=== PATIENT | female | born 1945 | race Caucasian/White ===

== ENCOUNTER 2022-05-20 10:37 | Outpatient (CLI) | payer OTHER, SELFPAY | END 2022-05-20 10:38 | disposition home or self-care (01) | LOC: INJ CL 10:40 | PROVIDERS: PCP Physician Assistant Medical; Visit Provider Family Medicine | DX: M54.16 Radiculopathy, lumbar region (principal); M51.36 Other intervertebral disc degeneration, lumbar region | CPT/HCPCS: 62323; J0702; Q9966 ==

== ENCOUNTER 2022-08-26 10:28 | Outpatient (CLI) | payer OTHER, SELFPAY | END 2022-08-26 10:29 | disposition home or self-care (01) | LOC: INJ CL 10:30 | PROVIDERS: PCP Physician Assistant Medical; Visit Provider Family Medicine | DX: M54.16 Radiculopathy, lumbar region (principal); M51.36 Other intervertebral disc degeneration, lumbar region | CPT/HCPCS: 62323; Q9966 ==

== ENCOUNTER 2022-09-25 09:56 | Emergency (ER) | payer OTHER, SELFPAY ==
[2022-09-25 10:01] VITALS: BP 94/60; PULSE 86; RESP 18; TEMP 36.6; O2SAT 97; BMI 24.0
--- NOTE | 2022-09-25 10:54 | ED.GENADULT ---
HPI - General Adult General Date Seen: 09/25/22 Chief complaint: Neck Injury/Pain Stated complaint: Neck, shoulder RT side spasms Time Seen by Provider: 09/25/22 10:47 Source: patient and family Mode of arrival: ambulatory Limitations: no limitations History of Present Illness HPI narrative: Patient is a 77-year-old woman who presents for evaluation of pain throughout both sides of her neck and shoulders. At 1 point, she was having pain that radiated down the left arm but that is resolved. She has not had any weakness or numbness. She does not recall any trauma at all. She has not had headache or fevers. She cannot turn her head from side to side due to pain and stiffness. It has been painful to get out of bed in out of her chair because of pain moving her neck. She does not recall anything quite this bad although she has had symptoms somewhat like this in the past. She has had problems with her low back and has had injections. She feels like there are knots in her neck and shoulders and by her right shoulder blade. She was worried about possible pneumonia, although she has not had any cough for respiratory symptoms. Her daughter feels that her symptoms are related to muscle spasms. Related Data Home Medications Medication Instructions Recorded Confirmed amiodarone 200 mg tablet 200 mg PO DAILY 09/25/22 09/25/22 aspirin 81 mg chewable tablet 1 tab PO DAILY 09/25/22 09/25/22 clopidogrel 75 mg tablet 75 mg PO DAILY 09/25/22 09/25/22 famotidine 20 mg tablet 20 mg PO DAILY 09/25/22 09/25/22 hydrochlorothiazide 25 mg tablet 25 mg PO DAILY 09/25/22 09/25/22 losartan 25 mg tablet 25 mg PO DAILY 09/25/22 09/25/22 paroxetine HCl 30 mg tablet 30 mg PO DAILY 09/25/22 09/25/22 pitavastatin calcium 2 mg tablet 2 mg PO DAILY 09/25/22 09/25/22 (Livalo) potassium chloride 10 mEq 20 meq PO BID 09/25/22 09/25/22 tablet,extended release potassium chloride 20 mEq oral meq 09/25/22 packet trimethoprim 100 mg tablet 100 mg PO DAILY 09/25/22 09/25/22 Previous Rx's Medication Instructions Recorded diazepam 5 mg tablet (Valium) 5 mg PO QHS PRN #7 tabs 09/25/22 Allergies Allergy/AdvReac Type Severity Reaction Status Date / Time atorvastatin Allergy Verified 09/25/22 10:08 ezetimibe [From Zetia] Allergy Verified 09/25/22 10:08 Penicillins Allergy Verified 09/25/22 10:08 Review of Systems Status of ROS: Reports: 6 or more systems reviewed and unremarkable except as noted in History and below [facility] Medical History Hypertension Surgical History S/P triple vessel bypass Social History Smoking Status: Unknown if ever smoked Do you use any of these nicotine containing products: None How often do you have a drink containing alcohol: 2-4 times a month AUDIT-C Alcohol total score: 2 Non-prescribed substance use: denies use service: No Exam Narrative: Exam Narrative: Vital signs reviewed. In general, an alert, nontoxic elderly woman. She is petite. Head: Normocephalic, atraumatic. Eyes: Pupils equal and reactive. ENT: Nares are clear. No facial trauma. Neck: She has tenderness throughout the cervical musculature bilaterally. Muscle spasm palpable. She has decreased rotation in both directions due to muscle spasm. No meningeal signs. Heart: Regular rate and rhythm. Lungs: Breath sounds are clear and equal bilaterally. No increased work of breathing. Back: She has tenderness some muscle spasm throughout her rhomboids and trapezius muscles bilaterally, as well as around her shoulder blade on the right. Neurologic: She is alert, oriented to person and place. Speech is fluent. Face is symmetric. Strength is 5 of 5 in bilateral upper extremities. Sensation is intact to light touch. Skin: Warm and dry, well perfused. No rash or lesion. Const: Vital Signs, click to edit/add: Vital Signs - 24 hr 09/25/22 10:01 Temperature 97.8 F Pulse Rate [Right Pulse Oximeter] 86 Respiratory Rate 18 Blood Pressure [Ri ght Upper Arm] 94/60 Pulse Oximetry 97 Oxygen Delivery Me thod Room Air Documenting provider has reviewed patient's vital signs: yes Course Course Hospital Course: I do think her symptoms are related to muscle spasm. Discussed that this may have been set off by something like a herniated disc, but if so those symptoms seem to have settled down and she has left now more with diffuse muscle spasm. I do not think this is infectious or vascular in nature. Exam is otherwise benign. I think it is reasonable to continue with ibuprofen and Tylenol although as she is finding, those are unlikely to significantly relieve her discomfort from the symptoms. She has taken Valium in the past for other reasons, and I think using that at bedtime for the next few nights might help with muscle spasm. She does take Benadryl at night for sleep right now, and I have asked her not to combine those 2 medications. I have also recommended massage as something that may help with these symptoms. Primary care follow-up if not improving over the next few days. Return for worsening such as severe controlled pain, fever, weakness, numbness, etcetera. If she does have recurrent radiating pain etcetera, she may have underlying disc pathology that will need to be further evaluated. Vital Signs Vital signs: Initial Vital Signs Temperature 97.8 F 09/25/22 10:01 Temperature Source Temporal Artery Scan 09/25/22 10:01 Pulse Rate 86 09/25/22 10:01 Respiratory Rate 18 09/25/22 10:01 Blood Pressure 94/60 09/25/22 10:01 Blood Pressure Mean 71 09/25/22 10:01 Blood Pressure Position Sitting 09/25/22 10:01 Pulse Oximetry 97 09/25/22 10:01 Oxygen Delivery Method 09/25/22 10:01 Vital Signs Temperature 97.8 F 09/25/22 10:01 Pulse Rate 86 09/25/22 10:01 Respiratory Rate 18 09/25/22 10:01 Blood Pressure 94/60 09/25/22 10:01 Pulse Oximetry 97 09/25/22 10:01 Oxygen Delivery Method 09/25/22 10:01 Temperature 97.8 F 09/25/22 10:01 Pulse Rate 86 09/25/22 10:01 Respiratory Rate 18 09/25/22 10:01 Blood Pressure 94/60 09/25/22 10:01 Pulse Oximetry 97 09/25/22 10:01 Oxygen Delivery Method 09/25/22 10:01 Discharge Plan Discharge Clinical Impression: Torticollis Patient Disposition: Home, Self-Care Condition: Stable Instructions: Muscle Spasm (ED) Additional Instructions: Continue with ibuprofen or Tylenol during the day. Valium as prescribed at night. Massage as recommended. Follow-up with primary care next week for recheck. Return at any time for acute worsening, radiating pain, weakness, numbness, fever, or other changes. Prescriptions: New diazepam [Valium] 5 mg tablet 5 mg PO QHS PRNQty: 7 0RF No Action aspirin 81 mg tablet,chewable 1 tab PO DAILY amiodarone 200 mg tablet 200 mg PO DAILY clopidogrel 75 mg tablet 75 mg PO DAILY hydrochlorothiazide 25 mg tablet 25 mg PO DAILY losartan 25 mg tablet 25 mg PO DAILY paroxetine HCl 30 mg tablet 30 mg PO DAILY Livalo 2 mg tablet 2 mg PO DAILY trimethoprim 100 mg tablet 100 mg PO DAILY famotidine 20 mg tablet 20 mg PO DAILY potassium chloride 10 mEq tablet extended release 20 meq PO BID potassium chloride 20 mEq packet Follow Up/Referrals: Yessi Acosta PA-C [Primary Care Provider] - Stand Alone Forms: [facility] [employer] Info Instructions
== END 2022-09-25 11:11 | disposition home or self-care (01) ==
LOC: ED 10:54
PROVIDERS: Emergency Provider Emergency Medicine; PCP Physician Assistant Medical
DX: M43.6 Torticollis (principal)
CPT/HCPCS: 99283; 99284

== ENCOUNTER 2022-12-06 09:58 | Outpatient (CLI) | payer OTHER, SELFPAY | END 2022-12-06 09:59 | disposition home or self-care (01) | LOC: INJ CL 09:58 | PROVIDERS: PCP Physician Assistant Medical; Visit Provider Family Medicine | DX: M54.16 Radiculopathy, lumbar region (principal); M51.36 Other intervertebral disc degeneration, lumbar region | CPT/HCPCS: 62323; J0702; Q9966 ==

== ENCOUNTER 2023-02-13 08:48 | Outpatient (CLI) | payer OTHER, SELFPAY ==
--- NOTE | 2023-02-13 10:53 | W.ANESCHARGE ---
Anesthesia Charges Start Date/Time Anesthesia Start Date: 02/13/23 Anesthesia Start Time: 10:30 Stop Date/Time Anesthesia Stop Date: 02/13/23 Anesthesia Stop Time: 11:25 Summary Extremes of Age - Over 70 or under 1: MDA
--- NOTE | 2023-02-13 11:25 | W.ANESCHARGE ---
Anesthesia Charges Start Date/Time Anesthesia Start Date: 02/13/23 Anesthesia Start Time: 10:30 Stop Date/Time Anesthesia Stop Date: 02/13/23 Anesthesia Stop Time: 11:25
== END 2023-02-13 08:49 | disposition home or self-care (01) ==
LOC: OP CLINIC 08:49
PROVIDERS: PCP Physician Assistant Medical; Visit Provider Internal Medicine Gastroenterology
DX: Z12.11 Encounter for screening for malignant neoplasm of colon (principal); K31.89 Other diseases of stomach and duodenum; K21.00 Gastro-esophageal reflux disease with esophagitis, without bleeding; K26.9 Duodenal ulcer, unspecified as acute or chronic, without hemorrhage or perforation; R13.10 Dysphagia, unspecified; R10.13 Epigastric pain
CPT/HCPCS: 43239; 45378; 813; 88305; 88312; 99100; J2704

== ENCOUNTER 2023-02-14 11:06 | Outpatient (CLI) | payer OTHER, SELFPAY | END 2023-02-14 11:07 | disposition home or self-care (01) | LOC: INJ CL 11:07 | PROVIDERS: PCP Physician Assistant Medical; Visit Provider Family Medicine | DX: M54.16 Radiculopathy, lumbar region (principal); M51.36 Other intervertebral disc degeneration, lumbar region | CPT/HCPCS: 62323; J0702; Q9966 ==

== ENCOUNTER 2023-04-25 13:01 | Outpatient (CLI) | payer OTHER, SELFPAY | END 2023-04-25 13:02 | disposition home or self-care (01) | LOC: INJ CL 13:02 | PROVIDERS: PCP Physician Assistant Medical; Visit Provider Family Medicine | DX: M54.16 Radiculopathy, lumbar region (principal); M51.36 Other intervertebral disc degeneration, lumbar region | CPT/HCPCS: 62323; J0702; Q9966 ==

== ENCOUNTER 2024-02-06 13:29 | Outpatient (CLI) | payer OTHER, SELFPAY ==
--- OUTSIDE RECORDS SUMMARY | 2024-02-06 13:37 | XMS_ITS | Clinical Summary ---
Author Organization [facility] Address [place], [place] [address] Care Team Providers Care Kindergarten Aide Name Role Phone Zain Mccall MD Unavailable [phone] Yessi Acosta Primary Care Provider Paula Cheung RN Unavailable [phone] Meka Jacobo RN Unavailable Asya Mederos RN Unavailable Otis Johnson MD Unavailable [facility] [place] Unavailable Helio Delgado MD Unavailable Isaac Guo MD Unavailable Jeermy Woodard MD Unavailable Allergies Active Allergy Reactions Criticality Noted Date Comments Amoxicillin Flushing 08/24/2023 Atorvastatin Other - Describe In Comment Field 07/02/2018 Body aches all over On chart review - seems to not have tolerated rosuvastatin or simvastatin either Penicillins Rash 06/04/2019 Ezetimibe Itching 11/02/2021 Medications Medication Sig Dispensed Refills Start Date End Date Status nitroglycerin (NITROSTAT) 0.4 mg sublingual tabletIndications: S/P CABG x [address] 1 tablet under the tongue every 5 minutes if needed for Chest Pain. If no relief after 2nd tablet call 911 5 tablet 06/27/20 20 Active azelastine 137 mcg/actuation (ASTELIN) nasal sprayIndications:D ysfunction of both eustachian tubes,Allergic rhinitis, unspecified seasonality, unspecified trigger Inhale 2 Sprays into affected nostril(s) 2 times daily. 30 mL 11 05/24/20 21 Active carvediloL (COREG) 3.125 mg tablet Take 1 Tablet (3.125 mg) by mouth once daily. 0 12/16/19 23 Active albuterol HFA (PRO-AIR; VENTOLIN; PROVENTIL) 90 mcg/actuation inhalerIndications :SOB (shortness of breath) INHALE 1-2 PUFFS BY MOUTH EVERY 4 HOURS IF NEEDED FOR SHORTNESS OF BREATH. 1 Each 05/12/20 23 Active clopidogreL (PLAVIX) 75 mg tabletIndications: S/P CABG x 3 TAKE 1 TABLET (75 MG) BY MOUTH ONCE DAILY. 90 Tablet 3 10/10/19 24 Active evolocumab (Repatha SureClick) 140 mg/mL subcutaneous pen injectorIndication s:Coronary artery disease, unspecified vessel or lesion type, unspecified whether angina present, unspecified whether [place] or transplanted heart Inject 1 mL (140 mg) subcutaneous every 2 weeks. Inject into abdomen, thigh, or upper arm; rotate injection sites. 6 mL 3 11/20/19 24 Active gabapentin (NEURONTIN) 300 mg capsuleIndications :Lumbar radicular pain TAKE 1 CAPSULE BY MOUTH AT BEDTIME. 30 Capsule 1 12/22/19 24 Active aspirin chewable 81 mg chewable tabletIndications: Abnormal cardiac CT angiography CHEW & SWALLOW 1 TABLET BY MOUTH ONCE DAILY WITH A MEAL. 90 Tablet 3 01/07/20 24 Active traMADoL (ULTRAM) 50 mg tabletIndications: Lumbar radicular pain Take 1 Tablet (50 mg) by mouth 4 times daily if needed for Pain. 36 Tablet 1 01/08/20 24 Active losartan (COZAAR) 25 mg tabletIndications: S/P CABG x 3 Take 1 Tablet (25 mg) by mouth once daily. 90 Tablet 3 01/15/20 24 Active Pitavastatin 2 mg tabIndications:Dys lipidemia,ASHD (arteriosclerotic heart disease) Take by mouth once daily. 90 Tablet 3 01/15/20 24 Active trimethoprim 100 mg tabletIndications: Recurrent UTI Take 1 Tablet (100 mg) by mouth once daily. For prevention of urinary tract infection. 90 Tablet 3 01/15/20 24 Active hydroCHLOROthiazid e 25 mg tabletIndications: S/P CABG (coronary artery bypass graft) Take 1 Tablet (25 mg) by mouth once daily. 90 Tablet 01/15/20 24 Active esomeprazole (NEXIUM) 40 mg capsuleIndications :Gastroesophageal reflux disease with esophagitis, unspecified whether hemorrhage Take 1 Capsule (40 mg) by mouth once daily before a meal. 90 Capsule 01/15/20 24 Active fluticasone (50 mcg per actuation) nasal solution (FLONASE)Indicatio ns:Non-seasonal allergic rhinitis due to pollen Inhale 2 Sprays into affected nostril(s) once daily if needed for Rhinitis. 11.1 mL 01/15/20 24 Active lidocaine 5 % oint topical ointmentIndication s:DDD (degenerative disc disease), lumbar,Osteoarthri tis of knee, unspecified laterality, unspecified osteoarthritis type,Peripheral polyneuropathy Apply topically to affected area(s) 3 times daily if needed (pain, burning). 60 g 01/15/20 24 Active loratadine (CLARITIN) 10 mg tabletIndications: Seasonal allergic rhinitis due to pollen Take 1 Tablet (10 mg) by mouth once daily. 90 Tablet 01/15/20 24 Active PARoxetine (PAXIL) 40 mg tabletIndications: Depression, major, single episode, moderate (HC) Take 1 Tablet (40 mg) by mouth every morning. 90 Tablet 01/15/20 24 Active HYDROcodone-acetam inophen (5-325 mg/tablet)Indicati ons:Spinal stenosis, lumbar region, without neurogenic claudication TAKE 1 TABLET BY MOUTH EVERY 6 HOURS IF NEEDED FOR PAIN. MAX ACETAMINOPHEN DOSE: 4000MG IN 24 HRS. 24 Tablet 01/31/20 24 Active cimetidine (TAGAMET) 300 mg tabletIndications: Chronic GERD Take 1 Tablet (300 mg) by mouth four times daily. 120 Tablet 12/10/19 024 Discontinued(*P atient states no longer taking) fluticasone (50 mcg per actuation) nasal solution (FLONASE)Indicatio ns:Non-seasonal allergic rhinitis due to pollen Inhale 2 Sprays into affected nostril(s) once daily if needed for Rhinitis. 11.1 mL 01/03/20 23 024 Discontinued(Re order (E-cancel not sent)) trimethoprim 100 mg tabletIndications: Recurrent UTI Take 1 Tablet (100 mg) by mouth once daily. For prevention of urinary tract infection. 90 Tablet 3 01/03/20 23 024 Discontinued(Re order (E-cancel not sent)) lidocaine 5 % oint topical ointmentIndication s:DDD (degenerative disc disease), lumbar,Osteoarthri tis of knee, unspecified laterality, unspecified osteoarthritis type,Peripheral polyneuropathy Apply topically to affected area(s) 3 times daily if needed (pain, burning). 60 g 5 01/03/20 23 024 Discontinued(Re order (E-cancel not sent)) Pitavastatin 2 mg tabIndications:Dys lipidemia,ASHD (arteriosclerotic heart disease) Take by mouth once daily. 90 Tablet 3 01/03/20 024 Discontinued(Re order (E-cancel not sent)) esomeprazole (NEXIUM) 40 mg capsuleIndications :Gastroesophageal reflux disease with esophagitis, unspecified whether hemorrhage TAKE 1 CAPSULE (40 MG) BY MOUTH ONCE DAILY BEFORE A MEAL. 90 Capsule 2 05/30/20 024 Discontinued(Re order (E-cancel not sent)) traMADoL (ULTRAM) 50 mg tabletIndications: Lumbar radicular pain TAKE 1 TABLET (50 MG) BY MOUTH 4 TIMES DAILY IF NEEDED FOR PAIN. 36 Tablet 12/22/19 024 Discontinued HYDROcodone-acetam inophen (5-325 mg/tablet)Indicati ons:Spinal stenosis, lumbar region, without neurogenic claudication TAKE 1 TABLET BY MOUTH EVERY 6 HOURS IF NEEDED FOR PAIN. MAX ACETAMINOPHEN DOSE: 4000MG IN 24 HRS. 24 Tablet 01/03/20 24 024 Discontinued hydroCHLOROthiazid e 25 mg tabletIndications: S/P CABG (coronary artery bypass graft) TAKE 1 TABLET (25 MG) BY MOUTH ONCE DAILY. 90 Tablet 01/07/20 24 024 Discontinued(Re order (E-cancel not sent)) losartan (COZAAR) 25 mg tabletIndications: S/P CABG x 3 TAKE 1 TABLET (25 MG) BY MOUTH ONCE DAILY. 90 Tablet 01/07/20 24 024 Discontinued(Re order (E-cancel not sent)) loratadine (CLARITIN) 10 mg tabletIndications: Seasonal allergic rhinitis due to pollen TAKE 1 TABLET (10 MG) BY MOUTH ONCE DAILY. 90 Tablet 01/07/20 24 024 Discontinued(Re order (E-cancel not sent)) PARoxetine (PAXIL) 30 mg tabletIndications: Sweats, menopausal,Depress ion, major, single episode, moderate (HC) TAKE 1 TABLET (30 MG) BY MOUTH EVERY MORNING. 90 Tablet 01/07/20 24 024 Discontinued(Re order (E-cancel not sent)) PARoxetine (PAXIL) 30 mg tabletIndications: Sweats, menopausal,Depress ion, major, single episode, moderate (HC) Take 1 Tablet (30 mg) by mouth every morning. 90 Tablet 3 01/15/20 24 024 Discontinued(*M edication adjustment) HYDROcodone-acetam inophen (5-325 mg/tablet)Indicati ons:Spinal stenosis, lumbar region, without neurogenic claudication TAKE 1 TABLET BY MOUTH EVERY 6 HOURS IF NEEDED FOR PAIN. MAX ACETAMINOPHEN DOSE: 4000MG IN 24 HRS. 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 pylori Atrial fibrillation 12/29/2021 COVID-19 12/03/2021 S/P CABG x 3 06/18/2020 Overview: JULIEN-LAD, SVG-Ramus, SVG-distal RCA Coronary artery disease of n ative artery of [place] heart with stable angina pectoris 05/29/2020 Overview: - coronary angiogram 05/29/2020 - 3 vessel CAD Pain medication agreement 02/15/2016 Overview: Prescriber: Yessi Acosta, PAC, Secondary Dr. Zain Mccall Ok to fill at same amount/dose/frequency in my absence. Controlled substance agreement: 05/25/15 with Yessi Acosta PAC [employer] query on 08/17/17 was acceptable. Last UDS on 10/31/2016 was appropriate. Hyperplastic colon polyp 12/09/2011 Overview: Colonoscopy 12/2011 polyp, no follow up colonoscopy needed Vitamin D deficiency 11/15/2011 Vitamin B12 deficiency 11/15/2011 Seasonal allergies 09/28/2011 Major depression, recurrent 09/28/2011 Spinal stenosis, lumbar [place] on, without neurogenic claudication 03/08/2011 Degeneration of lumbar or lumbosacral interverte bral disc 10/29/2008 Resolved Problems Problem Noted Date Diagnosed Date Resolved Date Pain management contract agreement 10/31/2016 10/24/2017 Yeast infection of the vagina 09/28/2011 05/04/2015 Encounters Date Type Department Care Team Description 01/30/2024 Refill [facility] [address] [place] [address] Zain Mccall MD Refill Request (Hydrocodone-acetaminop hen) 01/18/2024 3:00 PM CDT Office Visit [facility] [address] [place] [address] Zain Mccall MD Back Pain (Lumbar pain-right knee pain) 01/18/2024 Travel 01/16/2024 Refill [facility] [address] [place] [address] Zain Mccall MD Refill Request (Hydrocodone-acetaminop hen) 01/15/2024 1:00 PM CDT Office Visit [facility] [address] [place] [address] Yessi Acosta PA Medicare ANNUAL (subsequent) Visit (78 years old); Knee Pain/problem (R knee pain); Back Pain 01/15/2024 Travel 01/08/2024 Refill [facility] [address] [place] [address] Zain Mccall MD Refill Request (Tramadol) 01/06/2024 Refill [facility] [address] [place] [address] Yessi Acosta PA Refill Request (Hydrochlorothiazide, Losartan, Loratadine, Paroxetine, Aspirin Chewable) 01/03/2024 Refill [facility] [address] [place] [address] Zain Mccall MD Refill Request (Hydrocodone-acetaminop hen) 01/01/2024 Telephone [facility] [address] [place] [address] Zain Mccall MD Questions 12/21/2023 Refill [facility] [address] [place] [address] Zain Mccall MD Refill Request (Gabapentin, Tramadol) 12/20/2023 11:20 AM CDT Office Visit [facility] [address] [place] [address] Zain Mccall MD Musculoskeletal Problem (Follow up right hip pain) 12/20/2023 Travel 12/18/2023 Refill [facility] [address] [place] [address] Zain Mccall MD Refill Request (Hydrocodone-acetaminop hen) 12/05/2023 Refill [facility] [address] [place] [address] Zain Mccall MD Refill Request (Hydrocodone-acetaminop hen) 12/05/2023 Telephone [facility] [address] [place] [address] Zain Mccall MD Medication Management (Hydrocodone ) 11/28/2023 Telephone [facility] [address] [place] [address] Zain Mccall MD Appointment Request 11/25/2023 Refill [facility] [address] [place] [address] Zain Mccall MD Refill Request (Tramadol) 11/20/2023 Refill [facility] [address] [facility] [address] [place] [address] Otis Johnson MD Refill Request (Repatha) 11/20/2023 Refill [facility] [address] [place] [address] Zain Mccall MD Refill Request (Hydrocodone-acetaminop hen) from Last 3 Months Immunizations Name Administration Dates Next Due COVID-19 vaccine (BindHQ NTech 30mcg/0.3mL) 12YO+ ANISH-SUCROSE PF, MDV 01/20/2022,12/29/2021 Influenza Virus, Unspecified 06/27/2011, 06/15/2009,06/15/2009,2007,06/05/2007 Influenza, IIV3 (Age >=3 years) 06/27/20 11,06/15/2009,07/24/2008,2006 Influenza, ccIIV3 (Age >=18 Years) 09/02/2013 Pneumococcal Poly,23-Valent (Pneumovax) 11/09/2011 Pneumococcal conj 13-Valent (Prevnar 13) 10/13/2015 Tdap 11/09/2011,02/16/2005 Zoster (Zostavax-ZVL, live) 09/02/2013 Family History Medical History Relation Name Comments Diabetes Brother 1 Heart Disease Brother 2 70's and 80's Diabetes Father Heart Disease Father age 73 Heart Disease Mother age 93 Premature CHD (under age 60) Neg. none Diabetes Sister Cancer-breast No Family History Cancer-ovarian No Family History Relation Name Status Comments Brother 1 Brother 2 Father Mother Neg. Sister Social History Tobacco Use Types Packs/Day Years Used Date Smoking Tobacco: Never Smokeless Tobacco: Never Tobacco Cessation:Counseling Given: Yes Comments: smokes in the garage Alcohol Use Standard Drinks/Week Comments No 0 (1 standard drink = 0.6 oz pur e alcohol) PHQ-2 Answer Date Recorded PHQ-2 TOTAL SCORE 0 01/15/2024 Social Connections Answer Date Recorded Frequency of Communication with Friends and Fami ly 0 03/22/2023 Financial Resource Strain Answer Date R ecorded Difficulty of Paying Living Expenses 3 03/22/2023 Difficulty of Paying Living Expenses Not on file 03/22/2023 Food Insecurity Answer Date Recorded Worried About Running Out of Food in the Last Ye ar 1 03/22/2023 Transportation Needs Answer Date Record ed Lack of Transportation (Medical) 1 03/22/2023 Housing Stability Answer Date Recorded Unable to Pay for Housing in the Last Year 1 03/22/2023 Sex and Gender Information Value Date Recorded Sex Assigned at Not on file Gender Identity Not on file Sexual Orientation Not on file Obstetrics History Last Filed Vital Signs Vital Sign Reading Time Taken Comments Blood Pressure 108/72 01/18/2024 2:45 PM CDT Pulse 84 01/18/2024 2:45 PM CDT Temperature 36.6 ??C (97.8 ??F) 12/20/2023 11:16 AM C DT Respiratory Rate 16 12/15/2022 11:12 AM CDT Oxygen Saturation 95% 01/18/2024 2:45 PM CDT Inhaled Oxygen Concentration - - Weight 61.2 kg (135 lb) 01/18/2024 2:45 PM CDT Height 157.5 cm (5' 2) 01/15/2024 1:15 PM CDT Body Mass Index 24.69 01/15/2024 1:15 PM CDT Plan of Treatment Upcoming Encounters Date Type Department Care Team (Late st Contact Info) Description 02/06/2024 2:20 PM CDT Office Visit [facility] [address] [place] [address] Zain Mccall MD [address] [place] [address] Arrived 03/20/2024 1:00 PM CDT Office Visit [facility] [address] [place] [address] Zain Mccall MD [address] [place] [address] Health Maintenance Due Date Last Done Comments Zoster (shingles) series for age 50+ (2 of 3) 10/28/2013 09/02/2013 Tetanus booster 11/08/2021 11/09/2011, 02/16/2005 COVID-19 vaccine series ( season) 2023 01/20/2022, 12/29/2021 BMI (ht and wt on same day) for age 18+ 01/14/2025 01/15/2024, 01/02/2023, 09/15/2022, Additional history exists Medicare Wellness for age 65+ 01/15/2025, 01/02/2023, 12/29/2021, Additional history exists Depression screening for age 12+ 01/17/2025 01/18/2024, 01/16/2024, 01/15/2024, Additional history exists Tdap Completed 11/09/2011, 02/16/2005 Pneumococcal series for age 65+ Completed 6, 11/09/2011 DEXA/DXA scan for age 65+ Completed 04/22/2021, Hepatitis C screening for ag e 18-79 Completed 12/29/2021 Procedures Procedure Name Priority Date/Time Associated Diagnosis Comments AMB EPIDURAL STEROID INJECTION Routine 02/06/2024 7:59 AM CDT Spinal stenosis, lumbar region, without neurogenic claudication Lumbar radicular pain DDD (degenerative disc disease), cervical Lumbar facet arthropathy Neuropathic pain of both legs ANTI HCV Add On 12/29/2021 11:11 AM CDT Need for hepatitis C screening test XR DXA BONE DENSITY 2 SITES AXIAL Routine 04/22/2021 2:00 PM CDT Osteopenia, unspecified location from Last 3 Months or Most Recently Relevant to Health Maintenance Results * ANTI HCV (12/29/2021 11:11 AM CDT) HEPATITIS C ANTIBODY Non-React endy Non-React endy 12/29/2021 5:57 PM CDT [facility] Comment:Antibodies to HCV no t detected; does not exclude the possibility of exposure to HCV. Blood BLOOD SPECIMEN / Unknown Venipuncture / Unknown 12/29/2021 11:11 AM CDT 12/29/2021 11:12 AM CDT Yessi MCKAY SEND OUTS [facility] [address] [place] [address], * (ABNORMAL) XR DXA BONE DENSITY 2 SITES AXIAL (04/22/2021 2:00 PM CDT) Anatomical Region Laterality Modality Spine, HIPS, HIPL, HIPR Other Impressions 04/27/2021 2:14 PM CDT Osteopenia. RECOMMENDATIONS: The National Osteoporosis Foundation recommends pharmacologic treatment for patients with T-scores of -2.5 or less, patients with prior history of fragility fractures, or patients with 10-year probability of greater than 3% at hips or greater than 20% of suffering major osteoporotic fractures. Recommend continued optimization of calcium and vitamin D intake through dietary means and/or supplementation and regular exercise. Consider pharmacologic therapy for osteopenia with increased fracture risk. Follow-up bone density reading in 2 years if therapy initiated to assess therapeutic efficacy. Yessi Acosta PA-C [facility] 04/27/2021 Narrative 04/27/2021 2:14 PM CDT For Patients: Results are automatically released to your [facility] (StudyRoom) account once available, in compliance with federal regulations. This means that you may see your results before your provider has had a chance to review them. Please allow 2-3 business days for your provider to comment on the results. XR DXA Bone Mineral Density (BMD) EXAM LOCATION: [address] [address] PATIENT NAME: Cherelle Hussein DATE OF : 1945 EXAM DATE: 04/22/2021 REQUESTING PROVIDER: Yessi Acosta PA GENDER AT : female HEIGHT: 5' 0.63 (04/20/2021) WEIGHT: ??134 lb (04/20/2021) MENOPAUSAL STATUS: Postmenopausal RACE/ETHNICITY: White RISK FACTORS: White Race CURRENT MEDICATION FOR BONE LOSS: NONE INDICATION: Screening for osteoporosis COMPARISON DATE(S): None DXA scans are compared to prior studies for a patient only when the two (or more) studies were performed on the same scanner. It is not possible to compare data generated on one scanner to data from another because there are not standards in DXA equipment. This applies even if the two scanners are made by the same qa tester. PROCEDURE: Dual-energy x-ray absorptiometry performed with routine technique. Reporting is completed in the form of a T-score. The T-score represents the standard deviation from peak bone mass based on young healthy adult. A Z-score is used for diagnosis in premenopausal women, and for men under the age of 50. FINDINGS: RESULT LUMBAR SPINE L1, L2, L4 BMD: 1.021 g/cm2 T-Score: + 0.2 Z-Score: + 2.1 RESULT FEMORAL NECK Right Femoral Neck T-Score: - 1.8 Left Femoral Neck T-Score: - 1.9 ?? Right Femoral Neck Z-Score: + 0.2 Left Femoral Neck Z-Score: + 0.2 RESULT TOTAL HIP Right Hip T-Score: - 1.9 TotalHip T-Score: - 1.9 Right Hip Z-Score: + 0.0 Left Hip Z-Score: + 0.0 WHO criteria: Normal: T-score at or above -1 SD Osteopenia: T-score between -1.1 and -2.4 SD Osteoporosis: T-score at or below -2.5 SD FRAX RISK CALCULATION (USED FOR OSTEOPENIA ONLY): 10-year probability of major osteoporotic fracture: 13.6%. 10-year probability of hip fracture: 3.5%. Yessi MCKAY DEXA from Last 3 Months or Most Recently Relevant to Health Maintenance Advance Directives * Full Code (Latest Code Status on File) Date Activated Date Inactivated Comments 06/18/2020 5:53 AM 06/27/2020 7:33 PM preop Question Answer Comments Code Status Discussion: Other (specify in commen ts): * Full Code Date Activated Date Inactivated Comments 05/29/2020 10:34 AM 05/29/2020 8:20 PM Question Answer Comments Code Status Discussion: Discussed Care Teams Kindergarten Aide Relationship Specialty Start Date End Date Yessi Acosta PA [address] [place] [address] PCP - General Family Practice 06/04/12 Zain Mccall MD [address] [place] [address] Sports Medicine 11/09/11 Paula Cheung RN [address] [facility] [address] [place] [address] [employer] - [place] Registered Nurse 03/19/15 Meka Jacobo RN [address] [address] [place] [employer] - [place] [facility] Registered Nurse 07/05/16 Asya Mederos RN [address] [id number] [employer] - [place] Registered Nurse 06/25/21 Otis Johnson MD [address] [facility] [address] [place] [address] Cardiovascular Disease 12/29/21 [facility] [place] [address] [place] [address] 12/29/21 Helio Delgado MD [address] [place] [address] Surgery - Vascular 01/02/23 Isaac Guo MD [facility] [place] [address] Neurology 01/02/23 [place] [address] [facility] [address] [place] [phone] Physical Medicine and Rehabilitation 01/15/24
--- OUTSIDE RECORDS SUMMARY | 2024-02-06 13:37 | XMS_ITS | Encounter Summary ---
Author Organization [facility] Address [address] [place] [address] Care Team Providers Care Electric Power Line Examiner Name Role Phone Elsewhere, Pcp Primary Care Provider Unavailabl e Reason for Visit * Reason Onset Date Comments Results 01/24/2024 Encounter Details Date Type Department Care Team (Late Contact Info) Description 01/24/2024 Clinical Communication [facility], in [place], [place] [address] [place] [phone] Meghan Rod APRN, C.N.P., M.S.N. [address] [place] [address] Results Social History Tobacco Use Types Packs/Day Years Used Date Smoking Tobacco: Never Smokeless Tobacco: Never PHQ-2 Answer Date Recorded PHQ-2 Score 0 11/23/2020 Depression Answer Date Recor ded PHQ-9 Total Score (max 27) 1 11/23 Nutrition Answer Date Recorded Nutrition: EVOO Fat Source Unknown 10/23 Nutrition: Servings of Fruits/Vegetables per Day Not on file 10/23/2020 Dental Answer Date Recorded Dental: Regular Dentist Unknown 10/23/19 21 Sex and Gender Information Value Date Recorded Sex Assigned at Not on file Gender Identity Not on file Sexual Orientation Not on file documented as of this encounter Plan of Treatment Upcoming Encounters Date Type Department Care Team (Late Contact Info) Description 02/19/2024 1:45 PM CDT Clinical Support Department of Physical Medicine and Rehabilitation in [place], [place] [address] [phone] Jeremy Woodard M.D. [address], [address] [place] [phone] Sobia Orellana P[address] [place] [phone] documented as of this encounter Visit Diagnoses Not on filedocumented in this encounter Additional Health Concerns Assessment Noted Time PHQ-9 Depression Total Score: 1 11/24/19 21 3:00 PM CDT documented as of this encounter Care Teams Electric Power Line Examiner Relationship Specialty Start Date End Date Elsewhere, Pcp PCP - General Family Medicine 07/14/20 documented as of this encounter
--- OUTSIDE RECORDS SUMMARY | 2024-02-06 13:37 | XMS_ITS | Encounter Summary ---
Author Organization [facility] Address [address] [place] [address] Care Team Providers Care Drive Thru Order Taker Name Role Phone Elsewhere, Pcp Primary Care Provider Unavailabl e Reason for Visit * Physical Therapy (Routine) - Authorized Specialty Diagnoses / Procedures Referred By Jodi fraser Referred To Contact Diagnoses Radiculopathy Cervical Procedures PT Ongoing treatment Jeremy Woodard M.D. [address] [place] [address] [facility] Region Referral ID Status Reason Start Date Expiration Date V isits Requested Visits Authorized [id number] Authorized 11/01/2023 10/31/2024 99 99 Encounter Details Date Type Department Care Team (Latest Contact Info) Description 01/04/2024 2:30 PM CDT Clinical Support Department of Physical Medicine and Rehabilitation in [place], [place] [address] [place] [phone] Jeremy Woodard M.D. [address], [facility] [address] [place] [phone] Sobia Orellana P.T. [address] [place] [phone] Radiculopathy Cervical Social History Tobacco Use Types Packs/Day Years [...] on file documented as of this encounter Progress Notes * Sobia Orellana P.T. - 01/04/2024 2:30 PM CDT Physical Therapy Outpatient Treatment Note SUBJECTIVE Patient's Name: Cherelle Hussein Referring Provider: Jeremy Woodard M.D. Visit Diagnosis: 1. Radiculopathy Cervical Payor: [facility] / Plan: [facility] HMO / Product Type: HMO / PT Next Certification Date: 01/10/24 [facility] Visit Count: 11 Patient comments: Patient returns stating severe irritation of her right hip for the last few days.She states pain along the lateral thigh and into the knee. She has had difficulty weight-bearing and ambulating over the past few days. OBJECTIVE Outcome Measures: Patient returns with FOTO functional status score of 65 indicating 27 point change compared to initial survey. Patient has 6 visits over 33 days. Patient is predicted to have 18 points of functional status change in 12 visits over 50 days based on normative data. Left Right Shoulder Flexion 0-170 AROM: 110?? AROM: 115?? Shoulder Abduction 0-140 AROM: 65?? AROM: 90?? Shoulder Internal Rotation 0-70 AROM: T10?? AROM: T12?? Shoulder External Rotation 0-90 AROM: C6?? AROM: T1?? Cervical ROM: Right Left Rotation 15?? 5?? Side bending 5?? 5?? Flexion 35?? Extension 10?? TREATMENT Treatment today consisted of: Manual Therapy: In left side-lying, myofascial/mobilization to distal 1/2 ITB band, gluteus medius,piriformis, quadratus lumborum. In sitting, myofascial/mobilization into gastrocsoleus musculature. Therapeutic exercise: Initiated standing towel roll calf stretch X 15 seconds Home Exercise Program/Education: Use of heating pad to assist with pain management 12/22/2023: Clamshell, pelvic tilts 01/04/2024: Standing towel roll calf stretch Patient reports good HEP compliance. Assessment Clinical Impression: Patient with high levels hypertonicity and tenderness with manual therapy techniques into the calf as well as posterior hip musculature. Patient feels adequate stretch with standing towel roll calf stretch and notes improvement of symptoms with ambulation back to the waiting room. Functional Goals and Timeframes: PT Goal #1: Patient to decreased pain levels with driving to 2/10 with a [address] PT Goal #1 Date: 12/13/23 PT Goal #2: Patient to increase bilateral cervical rotation to 40?? to assist with driving activities PT Goal #2 Date: 12/13/23 PT Goal #3: Patient to decrease sleep interruptions to 1 time per night due to cervical pain PT Goal #3 Date: 12/13/23 PT Goal #4: Patient to increase bilateral shoulder flexion and abduction to 120?? to complete overhead hair activities PT Goal #4 Date: 12/13/23 Plan Physical Therapy Attestation Statement: Patient agrees with the plan of care and goals. Plan: Continue with current plan Number of Outpatient PT Visits: 10 PT Outpatient Duration (days): 90 days PT Frequency: 2 times per week Plan for next session: Will continue 1 time per week for 3-4 more additional visits focusing on right hip and cervical spine. Treatment/Interventions: Therapeutic exercise, Therapeutic functional activity, Neuromuscular re-education, Manual therapy Time Spent with Patient Therapeutic Interventions Manual Therapy (min): 35 min Time Tracking Total Timed Units (min): 35 min Total Treatment Time (min): 35 min documented in this encounter Plan of Treatment Upcoming Encounters Date Type Department Care Team (Late st Contact Info) Description 02/19/2024 1:45 PM CDT Clinical Support Department of Physical Medicine and Rehabilitation in [place], [place] [address] [place] [phone] Jeremy Woodard M.D. [address], [facility] [address] [place] [phone] Sobia Orellana P.T. [address] [place] [phone] documented as of this encounter Visit Diagnoses Diagnosis Radiculopathy Cervical documented in this encounter Additional Health Concerns Assessment Noted Time PHQ-9 Depression Total Score: 1 11/24/19 21 3:00 PM CDT documented as of this encounter Care Teams Drive Thru Order Taker Relationship Specialty Start Date End Date Elsewhere, Pcp PCP - General Family Medicine 07/14/20 documented as of this encounter
--- OUTSIDE RECORDS SUMMARY | 2024-02-06 13:37 | XMS_ITS | Referral Summary ---
Author Organization [facility] Address [address] [place] [address] Care Team Providers Care Manager Gaming Name Role Phone Elsewhere, Pcp Primary Care Provider Unavailabl e Source Comments Patient records contain information from all sites at [facility]. For routine questions regarding patient records, call [phone] during business hours, M-F 8:00 AM - 5:00 PM Central Time. Record requests for emergency care only can be directed to [phone] at any time.[facility] Encounters Date Type Department Care Team Description 02/05/2024 1:45 PM CDT Clinical Support Department of Physical Medicine and Rehabilitation in [place], [place] [address] [place] [phone] Jeremy Woodard M.D. Gill, Stephanie N, P.T. Radiculopathy Cervical 01/31/2024 2:30 PM CDT Clinical Support Department of Physical Medicine and Rehabilitation in [place], [place] [address] [place] [phone] Jeremy Woodard M.D. Gill, Stephanie N, P.T. Radiculopathy Cervical 01/24/2024 Clinical Communication Urgent Care, [facility], in [place], [place] [address] [place] [phone] Meghan Rod APRN, C.N.P., M.S.N. Results 01/22/2024 2:45 PM CDT Office Visit Urgent Care, [facility], in [place], [place] [address] [place] [phone] Meghan Rod APRN, C.N.P., M.S.N. Symptom Urinary (Primary Dx); Diarrhea; Nausea And Vomiting Discharge Disposition: Home or Self Care 01/04/2024 2:30 PM CDT Clinical Support Department of Physical Medicine and Rehabilitation in [address] [phone] Jeremy Woodard M.D. Gill, Stephanie N P.T. Radiculopathy Cervical 12/28/2023 1:00 PM CDT Clinical Support Department of Physical Medicine and Rehabilitation in [place] [address] [place] [address] Jeremy Woodard M.D. Gill, Stephanie N P.TLana Radiculopathy Cervical 12/22/2023 11:00 AM CDT Clinical Support Department of Physical Medicine and Rehabilitation in [place] [address] [place] [phone] Jeremy Woodard M.D. Gill, Stephanie N P.T. Radiculopathy Cervical 12/15/2023 1:30 PM CDT Clinical Support Department of Physical Medicine and Rehabilitation in [place] [address] [place] [phone] Jeremy Woodard M.D. Gill, Stephanie N P.T. Radiculopathy Cervical 12/07/2023 1:00 PM CDT Clinical Support Department of Physical Medicine and Rehabilitation in [place] [address] [place] [address] Jeremy Woodard M.D. Gill, Stephanie N P.T. Radiculopathy Cervical 12/01/2023 12:45 PM CDT Clinical Support Department of Physical Medicine and Rehabilitation in [place] [address] [place] [address] Jeremy Woodard M.D. Gill, Stephanie N, P.TLana Radiculopathy Cervical 11/29/2023 1:00 PM CDT Clinical Support Department of Physical Medicine and Rehabilitation in [place], [place] [address] [place] [address] Jeremy Woodard M.D. Gill, Stephanie N, P.TLana Radiculopathy Cervical 11/22/2023 1:45 PM CDT Clinical Support Department of Physical Medicine and Rehabilitation in [place], [place] [address] [place] [address] Jeremy Woodard M.D. Gill, Stephanie N, P.T. Radiculopathy Cervical 11/15/2023 1:45 PM CDT Clinical Support Department of Physical Medicine and Rehabilitation in [place], [place] [address] [place] [address] Jeremy Woodard M.D. 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 Gill, Stephanie N, P.TLana Radiculopathy Cervical from Last 3 Months Allergies Active Allergy Reactions Criticality Noted Date Comments Amoxicillin Other (see comments) 08/24/2023 Ezetimibe Itching 11/02/2021 Atorvastatin Other (see comments) 07/10/2020 Muscle aches Penicillins Rash 07/10/2020 Medications Medication Sig Dispensed Refills Start Date End Date Status calcium carb/vit D3/minerals (CALCIUM-VITAMIN D ORAL) Take by mouth daily. 01/05/2010 Active fluticasone propionate (ALLERGY RELIEF, FLUTICASONE, NASAL) Administer 2 sprays into each nostril daily. 01/05/2010 Active omeprazole (PriLOSEC) [address] capsule Take 1 capsule by mouth daily. 03/21/2011 Active aspirin 81 mg chewable tablet Chew 81 mg. 05/21/2020 Active clopidogreL (PLAVIX) 75 mg tablet Take 75 mg by mouth. 06/28/2020 Active diclofenac sodium (VOLTAREN) 1 % gel Apply topically to affected area(s) 2 times daily. 06/03/2019 Active loratadine (CLARITIN) 10 mg tablet Take 10 mg by mouth. 06/03/2019 Active losartan (COZAAR) 25 mg tablet Take 25 mg by mouth. 07/10/2020 Active nitroglycerin (NITROSTAT) 0.[address] 0.4 mg under the tongue. 06/27/2020 Active PARoxetine (PAXIL) 30 mg tablet Take 30 mg by mouth. 09/23/2019 Active pitavastatin calcium (LIVALO) 2 mg tablet Take 2 mg by mouth. 07/07/2020 Active triamcinolone (KENALOG) 0.1 % cream 05/08/2020 Act endy walker misc Walker with front wheels for home use. 06/27/2020 Active hydroCHLOROthiazide (HYDRODIURIL) 25 mg tablet 02/22/2021 Active trimethoprim (TRIMPEX) 100 mg tablet Take by mouth. Active acetaminophen (TYLENOL) 500 mg capsule Take 500 mg by mouth every 6 (six) hours as needed for pain. Active evolocumab (Repatha SureClick) 140 mg/mL pen injector injection Inject 140 mg under the skin every 14 (fourteen) days. Active lidocaine (XYLOCAINE) 5 % ointment Apply 1 application topically. 09/22/2021 Active diazePAM (VALIUM) 5 mg tablet 09/26/2022 Active potassium chloride (KLORCON/K-TAB) 10 mEq ER tablet 10/10/2022 Active famotidine (PEPCID) 20 mg tablet 10/07/2022 Active carvediloL (COREG) 3.125 mg tablet 10/07/2022 Active clobetasoL (TEMOVATE) 0.05 % ointment 01/10/2024 Active esomeprazole (NexIUM) [address] capsule Take 1 capsule by mouth daily. 01/15/2024 Active gabapentin (NEURONTIN) 300 mg capsule Take 1 capsule by mouth at bedtime. 12/22/2023 Active HYDROcodone-acetamino phen (NORCO) 5-325 mg per tablet Take 1 tablet by mouth every 6 (six) hours as needed. 01/16/2024 Active traMADoL (ULTRAM) 50 mg tablet Take 50 mg by mouth 4 (four) times a day as needed. 01/08/2024 Active ondansetron ODT (ZOFRAN-ODT) 4 mg disintegrating tablet Dissolve 1 tablet (4 mg total) in the mouth every 8 (eight) hours as needed for nausea or vomiting. 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 11/15/2011 Deficiency Vitamin D 11/15/2011 Apnea Sleep Obstructive 01/06/2010 Hypothyroidism Subclinical 01/06/2010 Restless Leg Syndrome 01/06/2010 Temporomandibular Joint Disorder 01/06/2010 Insomnia 01/06/2010 Depressive Disorder 01/05/2010 Overview: Depression* Bone Disorder 01/05/2010 Hyperlipidemia 01/05/2010 Reflux Esophageal 01/05/2010 Osteoarthritis 01/05/2010 Degeneration Disc Lumbosacral 10/29/2008 Resolved Problems Problem Noted Date Diagnosed Date Resolved Date Atherosclerotic Heart Diseas e Of [place] Coronary Artery With Other Forms Of Angina Pectoris 05/29/2020 11/30/2022 Overview: - coronary angiogram 05/29/2020 - 3 vessel CAD Immunizations Name Administration Dates Next Due HZV (ZOSTAVAX) 09/02/2013 Influenza TIV (IM) 06/27/2011, 9,07/24/2008,2006 Influenza, Injectable, Mdck, Preservative Free, Quadrivalent 09/02/2013 Influenza, Seasonal, Injectable 06/27/20 11,06/15/2009,07/24/2008,2006 Influenza, Unspecified 06/27/2011,2008,07/24/2008,2006 PCV13 10/13/2015 PPSV23 11/09/2011 Tdap 11/09/2011,02/16/2005 Social History Tobacco Use Types Packs/Day Years Used Date Smoking Tobacco: Never Smokeless Tobacco: Never Tobacco Cessation:Counseling Given: Yes PHQ-2 Answer Date Recorded PHQ-2 Score 0 [...] on file Sexual Orientation Not on file Last Filed Vital Signs Vital Sign Reading Time Taken Comments Blood Pressure 106/70 01/22/2024 2:17 PM CDT Pulse 91 01/22/2024 2:17 PM CDT Temperature 36.6 ??C (97.8 ??F) 01/22/2024 2:17 PM CD T Respiratory Rate 16 12/12/2021 11:41 AM CDT Oxygen Saturation 98% 11/30/2022 3:50 PM CDT Inhaled Oxygen Concentration - - Weight 60.1 kg (132 lb 8 oz) 01/22/2024 2:17 PM CDT Height 154.6 cm (5' 0.87) 11/30/2022 3:50 PM CD T Body Mass Index 25.15 11/30/2022 3:50 PM CDT Plan of Treatment Upcoming Encounters Date Type Department Care Team (Late st Contact Info) Description 02/19/2024 1:45 PM CDT Clinical Support Department of Physical Medicine and Rehabilitation in [place], [place] [address] [place] [phone] Jeremy Woodard M.D. 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 Presence Of Aortocoronary Bypass Graft BI BREAST DIAGNOSTIC BILATERAL WITH TOMOSYNTHESIS Routine 04/22/2021 1:53 PM CDT from Last 3 Months or Most Recently Relevant to Health Maintenance Results * (ABNORMAL) Urinalysis with Microscopic if Indicated (01/22/2024 2:19 PM CDT) Source Urine, Urine, Midstream 01/22/2024 2:38 PM CDT NPRG Clarity Clear Clear 01/22/2024 2:41 PM CDT NPRG Color Yellow 01/22/2024 2:41 PM CDT NPRG Comment: ----REFERENCE VALUE---- Colorless Yellow Mandy Blood Trace(A) Negative 01/22/2024 2:41 PM CDT NPRG Nitrite Negative Negative 01/22/2024 2:41 PM CDT NPRG Leukocyte Esterase Trace(A) Negative 01/22/2024 2:41 PM CDT NPRG Protein Negative mg/dL 01/22/2024 2:41 PM CDT NPRG Comment: ----REFERENCE VALUE---- Negative Trace Glucose Negative Negative mg/dL 01/22/2024 2:41 PM CDT NPRG Ketones, QI(U) Negative Negative mg/dL 01/22/2024 2:41 PM CDT NPRG Bilirubin Negative Negative 01/22/2024 2:41 PM CDT NPRG pH 7.0 5.0 - 8.0 01/22/2024 2:41 PM CDT NPRG Specific [place] 1.025 1.001 - 1.035 01/22/2024 2:41 PM CDT NPRG Urobilinogen 0.2 0.2 - 1.0 mg/dL 01/22/2024 2:41 PM CDT NPRG Urine (Urine, Midstream) 01/22/2024 2:19 PM CDT 01/22/2024 2:38 PM CDT Meghan Rod APRN, C.N.P., M.S.N. LAB U RINE ORDERABLES Performing Organization Address City/[facility]/ZIP Co de Phone Number [facility] [address] [place] [address], [facility] NPRG [address] [address] * (ABNORMAL) Microscopic Manual (01/22/2024 2:19 PM CDT) White Blood Cells 4-10 /hpf 01/22/2024 2:52 PM CDT NPRG Comment: ----REFERENCE VALUE---- Males: 0-3 Females: 0-10 Unknown: 0-10 Red Blood Cells 3-10(A) 0 - 2 /hpf 2:52 PM CDT NPRG Dysmorphic Red Blood Cells <=25 <=25 % 01/22/2024 2:52 PM CDT NPRG Squamous Cells Occ-3 /hpf 01/22/2024 2:52 PM CDT NPRG Urine 01/22/2024 2:19 PM CDT 01/22/2024 2:38 PM CDT Janine Burgos APRNNLanaP., M.S.N. LAB U RINE ORDERABLES Performing Organization Address City/[facility]/ZIP Co de Phone Number [facility] [address] [place] [id number], [facility] NPRG [address] [address] * Bacterial Culture, Aerobic + Susceptibility, Urine (01/22/2024 2:16 PM CDT) Urine Culture No growth after 1 day of incubation. 01/23/2024 12:39 PM CDT [facility] Urine (Urine, Midstream) 01/22/2024 2:16 PM CDT 01/22/2024 4:32 PM CDT Comment:Specimen Source Site : Urine Meghan Rod APRN C.N.P., M.S.N. LAB M ICROBIOLOGY - GENERAL ORDERABLES [facility] [address] [place] [address], 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) Potassium, P 3.6 3.6 - 5.2 mmol/L 10/31/2023 12:32 PM NEEDLE PUNCH MACHINE OPERATOR NPRG Sodium, P 144 135 - 145 mmol/L 10/31/2023 12:32 PM NEEDLE PUNCH MACHINE OPERATOR NPRG Chloride, P 103 98 - 107 mmol/L 10/31/2023 12:32 PM NEEDLE PUNCH MACHINE OPERATOR NPRG Bicarbonate, P 27 22 - 29 mmol/L 10/31/2023 12:32 PM NEEDLE PUNCH MACHINE OPERATOR NPRG Anion Gap, P 14 7 - 15 10/31/2023 12:32 PM NEEDLE PUNCH MACHINE OPERATOR NPRG BUN (Blood Urea Nitrogen), P 22(H) 6 - 21 mg/dL 10/31/2023 12:32 PM NEEDLE PUNCH MACHINE OPERATOR NPRG Creatinine 0.98 0.59 - 1.04 mg/dL 10/31/2023 12:32 PM NEEDLE PUNCH MACHINE OPERATOR NPRG Estimated GFR (eGFR) 59(L) >=60 mL/min/BSA 10/31/2023 12:32 PM NEEDLE PUNCH MACHINE OPERATOR NPRG Comment: Estimated GFR calculated using the 2020 CKD_EPI creatinine equation. Calcium, Total, P 10.1 8.8 - 10.2 mg/dL 10/31/2023 12:32 PM NEEDLE PUNCH MACHINE OPERATOR NPRG Glucose, P 96 70 - 140 mg/dL 10/31/2023 12:32 PM NEEDLE PUNCH MACHINE OPERATOR NPRG Blood (Blood, Venous) 10/31/2023 11:56 AM NEEDLE PUNCH MACHINE OPERATOR 10/31/2023 12:01 PM NEEDLE PUNCH MACHINE OPERATOR Otis Johnson M.D. LAB BLOOD ADD-ON [facility] [address] [place] [address], [place] NPRG [facility] [address] [place] [address] from Last 3 Months or Most Recently Relevant to Health Maintenance Advance Directives For more information, please contact: [phone] Documents on File Type Date Recorded Patient Scrap Piler Expl anation Advance Directives 11/13/2006 12:00 AM Leg acy document. See document viewer. Care Teams Manager Gaming Relationship Specialty Start Date End Date Elsewhere, Pcp PCP - General Family Medicine 07/14/20
--- OUTSIDE RECORDS SUMMARY | 2024-02-06 13:37 | XMS_ITS | Encounter Summary ---
Author Organization [facility] Address [address] [place] [address] Care Team Providers Care Fur Clipper Name Role Phone Elsewhere, Pcp Primary Care Provider Unavailabl e Reason for Visit * Reason Comments Urinary Symptom Stomach pain, diarrh ea, history of UTI's, x1 week Encounter Details Date Type Department Care Team (Late st Contact Info) Description 01/22/2024 2:45 PM CDT Office Visit Urgent Care, [facility], in [place], [place] [address] [place] [address] Meghan Rod APRN, C.N.P., M.S.N. [address] [place] [address] Symptom Urinary (Primary Dx); Diarrhea; Nausea And Vomiting Discharge Disposition: Home or Self Care Social History Tobacco Use Types Packs/Day Years [...] on file documented as of this encounter Last Filed Vital Signs Vital Sign Reading Time Taken Comments Blood Pressure 106/70 01/22/2024 2:17 PM CDT Pulse 91 01/22/2024 2:17 PM CDT Temperature 36.6 ??C (97.8 ??F) 01/22/2024 2:17 PM CD T Respiratory Rate - - Oxygen Saturation - - Inhaled Oxygen Concentration - - Weight 60.1 kg (132 lb 8 oz) 01/22/2024 2:17 PM CDT Height - - Body Mass Index 25.15 11/30/2022 3:50 PM CDT documented in this encounter Progress Notes * Meghan Rod APRN, C.N.P., M.S.N. - 01/22/2024 2:45 PM CDT SUBJECTIVE CHIEF COMPLAINT / REASON FOR VISIT Urinary Symptom (Stomach pain, diarrhea, history of UTI's, x1 week ) HISTORY OF PRESENT ILLNESS Cherelle Hussein is a 78 y.o. female who presents for evaluation of symptoms of urinary frequencyand urgency for just over a week. The patient states she has not having any pain on urination. She also states she has had diarrhea frequently over the last week or more. She states she believes the diarrhea started 1st. She states she is having large amounts of loose liquid stools. She states yesterday she was going all day long. She did take Imodium this morning and now just feels bloated but has not had diarrhea since taking the Imodium. She states she does not have any abdominal pain but has some pressure on the left. She states she is some lower back pain as well. She has not had a fever. She is keeping liquids down but feels nauseas and has not been eating a lot for a few days. The patient's social history, problem list, medications and allergies were reviewed in the electronic medical record. REVIEW OF SYSTEMS A brief review of systems was negative except for that mentioned in the history of present of illness. The patient's social history, medical history, problem list, medications and allergies were reviewed in the electronic medical record. OBJECTIVE VITAL SIGNS BP 106/70 Pulse 91 Temp 36.6 ??C (Temporal) Wt 60.1 kg BMI 25.15 kg/m?? PHYSICAL EXAMINATION Constitutional General: She is not in acute distress. Appearance: Normal appearance. She is not toxic-appearing. HENT Head: Normocephalic and atraumatic. Cardiovascular Rate and Rhythm: Normal rate and regular rhythm. Pulmonary Effort: Pulmonary effort is normal. Breath sounds: Normal breath sounds. Abdominal General: Bowel sounds are normal. There is no distension. Palpations: There is no mass. Tenderness: There is no right CVA tenderness, left CVA tenderness, guarding or rebound. Hernia: No hernia is present. Comments: Pressure over the left abdomen on palpation. No pain. Neurological Mental Status: She is alert. DIAGNOSTICS Recent Results (from the past 72 hour(s)) Urinalysis with Microscopic if Indicated Collection Time: 01/22/24 2:19 PM Result Value Source Urine, Urine, Midstream Clarity Clear Color Yellow Blood Trace (A) Nitrite Negative Leukocyte Esterase Trace (A) Protein Negative Glucose Negative Ketones, QI(U) Negative Bilirubin Negative pH 7.0 Specific [place] 1.025 Urobilinogen 0.2 Microscopic Manual Collection Time: 01/22/24 2:19 PM Result Value White Blood Cells 4-10 Red Blood Cells 3-10 (A) Dysmorphic Red Blood Cells <=25 Squamous Cells Occ-3 ASSESSMENT / PLAN 1. Symptom Urinary 2. Diarrhea 3. Nausea And Vomiting We discussed that the urinalysis is not indicated of a urinary tract infection however I did order a urine culture which is pending. She will be notified of those results when available and if she has a positive culture we will need antibiotics. She continues to have loose stools therefore I did order a GI pathogen panel for further evaluation and prescribed Zofran for nausea. We discussed following a bland diet and hydrating well. If she develops any worsening abdominal pain she will present to the emergency department. New Medications Ordered This Visit Medications clobetasoL (TEMOVATE) 0.05 % ointment esomeprazole (NexIUM) [address] capsule Sig: Take 1 capsule by mouth daily. gabapentin (NEURONTIN) 300 mg capsule Sig: Take 1 capsule by mouth at bedtime. HYDROcodone-acetaminophen (NORCO) 5-325 mg per tablet Sig: Take 1 tablet by mouth every 6 (six) hours as needed. traMADoL (ULTRAM) 50 mg tablet Sig: Take 50 mg by mouth 4 (four) times a day as needed. ondansetron ODT (ZOFRAN-ODT) 4 mg disintegrating tablet Sig: Dissolve 1 tablet (4 mg total) in the mouth every 8 (eight) hours as needed for nausea or vomiting. Dispense: 15 tablet Refill: 0 Patient agrees with plan and verbalizes understanding of plan. Patient was provided verbal and written education and has no further questions or concerns. She will follow up as needed or at the next scheduled return visit. She will call the clinic if there are any further questions or concerns in the meantime. documented in this encounter Plan of Treatment Upcoming Encounters Date Type Department Care Team (Late st Contact Info) Description 02/19/2024 1:45 PM CDT Clinical Support Department of Physical Medicine and Rehabilitation in [place], [place] [address] [place] [phone] Jeremy Woodard M.D. [address], [address] [place] [phone] Sobia Orellana, PAriane [address] [place] [phone] Scheduled Orders Name Type Priority Associated Diagnoses Orde r Schedule GI Pathogen Panel, PCR, Feces Microbiology STAT Diarrhea Ordered: 01/22/2024 documented as of this encounter Procedures Procedure Name Priority Date/Time Associated Diagnosis Comments URINALYSIS WITH MICROSCOPIC IF INDICATED, U STAT 01/22/2024 2:19 PM CDT Symptom Urinary HC URINALYSIS AUTO W MICRO STAT 01/22/2024 2:19 PM CDT BACTERIAL CULTURE, AEROBIC + SUSC, URINE STAT 01/22/2024 2:16 PM CDT Symptom Urinary documented in this encounter Results * (ABNORMAL) Microscopic Manual (01/22/2024 2:19 PM [...] CDT 01/22/2024 2:38 PM CDT Janine Burgos APRNNBruce., M.S.N. LAB U RINE ORDERABLES [facility] [address] [place] [address], [facility] NPRG [facility] [address] [place] [address] * (ABNORMAL) Urinalysis with Microscopic if Indicated [...] 8.0 01/22/2024 2:41 PM CDT NPRG Specific [place] 1.025 1.001 - 1.035 01/22/2024 2:41 PM CDT NPRG Urobilinogen 0.2 0.2 - 1.0 mg/dL 01/22/2024 2:41 PM CDT NPRG Urine (Urine, Midstream) 01/22/2024 2:19 PM CDT 01/22/2024 2:38 PM CDT Meghan Rod APRN, C.N.P., M.S.N. LAB U RINE ORDERABLES Performing Organization Address City/[facility]/ZIP Co de Phone Number [facility] [address] [place] [address], [facility] NPRG [facility] [address] [place] [address] * Bacterial Culture, Aerobic + Susceptibility, Urine (01/22/2024 2:16 PM CDT) Urine Culture No growth after 1 day of incubation. 01/23/2024 12:39 PM CDT MKTO Urine (Urine, Midstream) 01/22/2024 2:16 PM CDT 01/22/2024 4:32 PM CDT Comment:Specimen Source Site : Urine Meghan Rod APRN, C.N.P., M.S.N. LAB [facility] Performing Organization Address [facility] Co de Phone Number [facility] [address] [place] [address], [facility] MKTO [facility] [address] [place] [phone] documented in this encounter Visit Diagnoses Diagnosis Symptom Urinary- Primary Diarrhea Nausea And Vomiting documented in this encounter Additional Health Concerns Assessment Noted Time PHQ-9 Depression Total Score: 1 11/24/19 21 3:00 PM CDT documented as of this encounter Care Teams Fur Clipper Relationship Specialty Start Date End Date Elsewhere, Pcp PCP - General Family Medicine 07/14/20 documented as of this encounter
--- OUTSIDE RECORDS SUMMARY | 2024-02-06 13:37 | XMS_ITS | Encounter Summary ---
Author Organization [facility] Address [address] [place] [address] Care Team Providers Care Business Editor Name Role Phone Elsewhere, Pcp Primary Care Provider Unavailabl e Reason for Visit * Physical Therapy (Routine) - Authorized Specialty Diagnoses / Procedures Referred By Jodi fraser Referred To Contact Diagnoses Radiculopathy Cervical Procedures PT Ongoing treatment Jeremy Woodard M.D. [address] [place] [phone] [facility] Region Referral ID Status Reason Start Date Expiration Date V isits Requested Visits Authorized [id number] Authorized 11/01/2023 10/31/2024 99 99 Encounter Details Date Type Department Care Team (Latest Contact Info) Description 02/05/2024 1:45 PM CDT Clinical Support Department of Physical Medicine and Rehabilitation in [place], [place] [address] [place] [phone] Jeremy Woodard M.D. [address], [facility] [address] [place] [phone] Sobia Orellana P.T. [address] [place] [phone] Radiculopathy Cervical Social History Tobacco Use Types [...] Progress Notes * Sobia Orellana P.T. - 02/05/2024 1:45 PM CDT Physical Therapy Medicare Recertification By co-signing this note, the provider certifies the therapy being provided to this patient is reasonable and necessary for the diagnosis or treatment of this patient. Physician Signature: Date Print Name: SUBJECTIVE Patient's Name: Cherelle Hussein Referring Provider: Jeremy Woodard M.D. Visit Diagnosis: 1. Radiculopathy Cervical Reason for Referral: Neck Pain and Lack of Cervical Motion Payor: [facility] / Plan: [facility] HMO / Product Type: HMO / Date of initial PT Visit: 11/01/2023 Visit Count: 13 PT Next Certification Date: 01/10/24 Patient comments: Patient reports that overall since onset of therapy sessions, she is noted improvement of mobility neck and shoulder. She has having no longer intermittent sleep habits or difficulty with driving activities due to the neck and shoulder. She is noted improvement of transfers in andout of the car. However patient continues to have substantial right-sided knee and back pain. She has undergoing a back injection tomorrow and hopeful this will assist with her symptoms. OBJECTIVE Outcome Measures: Patient returns with FOTO functional status score of 65 indicating 27 point change compared to initial survey. Patient has 6 visits over 33 days. Patient is predicted to have 18 points of functional status change in 12 visits over 50 days based on normative data. Left Right Shoulder Flexion 0-170 AROM: 140?? AROM: 140?? Shoulder Abduction 0-140 AROM: 65?? AROM: 90?? Shoulder Internal Rotation 0-70 AROM: T10?? AROM: T12?? Shoulder External Rotation 0-90 AROM: C6?? AROM: T1?? Cervical ROM: Right Left Rotation 35?? 32?? Side bending 5?? 5?? Flexion 35?? Extension 10?? TREATMENT Treatment today consisted of: Manual Therapy: In prone, myofascial/mobilization completed into thoracic and lumbar paraspinals and into rhomboids major and minor. Completed rotational and lateral mobilizations or nerve thoracolumbar spine bilaterally. In left side- lying, additional myofascial/mobilization into right upper trapezius levator scapula and supraspinatus as well as into right distal 1/2 IT band Home Exercise Program/Education: Use of heating pad to assist with pain management 12/22/2023: Clamshell, pelvic tilts 01/04/2024: Standing towel roll calf stretch Patient reports good HEP compliance. Assessment Clinical Impression: Patient with improvement of neck and shoulder active mobility since onset of therapy session. Continues to benefit from physical therapy services to assist with pain management as well as cervical range motion. Patient also benefit from continued physical therapy services to assist with right knee and dysfunction. Patient with improvement of right knee symptoms mobilizing at end of therapy session with manual therapy techniques today. Functional Goals and Timeframes: PT Goal #1: Patient to decreased pain levels with driving to 2/10 with a [address] PT Goal #1 Date: 03/18/24 PT Goal #1 Status: Achieved PT Goal #2: Patient to increase bilateral cervical rotation to 40?? to assist with driving activities PT Goal #2 Date: 03/18/24 PT Goal #2 Status: Progressing PT Goal #3: Patient to decrease sleep interruptions to 1 time per night due to cervical pain PT Goal #3 Date: 03/18/24 PT Goal #3 Status: Achieved PT Goal #4: Patient to increase bilateral shoulder flexion and abduction to 120?? to complete overhead hair activities PT Goal #4 Date: 03/18/24 PT Goal #4 Status: Achieved Plan Physical Therapy Attestation Statement: Patient agrees [...] with Patient Therapeutic Interventions Manual Therapy (min): 40 min Time Tracking Total Timed Units (min): 40 min Total Treatment Time (min): 40 min documented in this encounter Plan of Treatment Upcoming Encounters Date Type Department Care Team (Late st Contact Info) Description 02/19/2024 1:45 PM CDT Clinical Support Department of Physical Medicine and Rehabilitation in [place], [place] [address] [place] [address] Jeremy Woodard M.D. [address], [facility] [address] [place] [phone] Sobia Orellana P.T. [address] [place] [phone] documented as of this encounter Visit Diagnoses Diagnosis Radiculopathy Cervical documented in this encounter Additional Health Concerns Assessment Noted Time PHQ-9 Depression Total Score: 1 11/24/19 21 3:00 PM CDT documented as of this encounter Care Teams Business Editor Relationship Specialty Start Date End Date Elsewhere, Pcp PCP - General Family Medicine 07/14/20 documented as of this encounter
--- OUTSIDE RECORDS SUMMARY | 2024-02-06 13:37 | XMS_ITS | Encounter Summary ---
Author Organization [facility] Address [address] [place] [address] Care Team Providers Care Vocational Evaluator Name Role Phone Elsewhere, Pcp Primary Care Provider Unavailabl e Reason for Visit * Physical Therapy (Routine) - Authorized Specialty Diagnoses / Procedures Referred By Jodi fraser Referred To Contact Diagnoses Radiculopathy Cervical Procedures PT Ongoing treatment Jeremy Woodard M.D. [address] [place] [phone] [facility] Region Referral ID Status Reason Start Date Expiration Date V isits Requested Visits Authorized [id number] Authorized 11/01/2023 10/31/2024 99 99 Encounter Details Date Type Department Care Team (Latest Contact Info) Description 01/31/2024 2:30 PM CDT Clinical Support Department of Physical Medicine and Rehabilitation in [place], [place] [address] [place] [phone] Jeremy Woodard M.D. [address], [facility] [address] [place] [phone] Sobia Orellana P.T. [address] [place] [phone] Radiculopathy Cervical Social History Tobacco Use Types [...] this encounter Progress Notes * Sobia Orellana PLanaT. - 01/31/2024 2:30 PM CDT Physical Therapy Outpatient Treatment Note SUBJECTIVE Patient's Name: Cherelle Hussein Referring Provider: Jeremy Woodard M.D. Visit Diagnosis: 1. Radiculopathy Cervical Payor: [facility] / Plan: [facility] HMO / Product Type: HMO / PT Next Certification Date: 01/10/24 [facility] Visit Count: 12 Patient comments: Patient returns stating that her knee and hip continue to offer intermittent difficulty with mobility however feels as though in the meantime, her neck and shoulder has been aggravated again. Patient has noted return of pain with driving activities. OBJECTIVE Outcome Measures: Patient returns with FOTO [...] into right upper trapezius levator scapula and supraspinatus. Therapeutic exercise: Initiated standing towel roll calf stretch X 15 seconds Home Exercise Program/Education: Use of heating pad to assist with pain management 12/22/2023: Clamshell, pelvic tilts 01/04/2024: Standing towel roll calf stretch Patient reports good HEP compliance. Assessment Clinical Impression: Patient with hypertonicity into the thoracic musculature as well as initially difficulty with mobilizing able to progress to improve mobility. Patient will continued hypertonicity into the right-sided neck region. Functional Goals and Timeframes: PT Goal #1: [...] Will continue 1 time per week for 1-2 more additional visits focusing on right hip and cervical spine. Treatment/Interventions: Therapeutic exercise, Therapeutic functional activity, Neuromuscular re-education, Manual therapy Time Spent with Patient Therapeutic Interventions Manual Therapy (min): 30 min Time Tracking Total Timed Units (min): 30 min Total Treatment Time (min): 30 min documented in this encounter Plan of Treatment Upcoming Encounters Date Type Department Care Team (Late st Contact Info) Description 02/19/2024 1:45 PM CDT Clinical Support Department of Physical Medicine and Rehabilitation in [place], [place] [address] [place] [phone] Jeremy Woodard M.D. [address], [facility] [address] [place] [phone] Sobia Orellana P.T. [address] [place] [phone] documented as of this encounter Visit Diagnoses Diagnosis Radiculopathy Cervical documented in this encounter Additional Health Concerns Assessment Noted Time PHQ-9 Depression Total Score: 1 11/24/19 21 3:00 PM CDT documented as of this encounter Care Teams Vocational Evaluator Relationship Specialty Start Date End Date Elsewhere, Pcp PCP - General Family Medicine 07/14/20 documented as of this encounter
--- OUTSIDE RECORDS SUMMARY | 2024-02-06 13:37 | XMS_ITS | Clinical Summary ---
Author Organization [facility] Address [address] [place] [address] Care Team Providers Care Butt Sawyer Name Role Phone Elsewhere, Pcp Primary Care Provider Unavailabl e Source Comments Patient records contain information from all sites at [facility]. For routine questions regarding patient records, call [phone] during business hours, M-F 8:00 AM - 5:00 PM Central Time. Record requests for emergency care only can be directed to [phone] at any time.[facility] Allergies Active Allergy Reactions Criticality Noted Date [...] Diagnosed Date Presence Of Aortocoronary Bypass Graft 10/15/202 0 Overview: JULIEN-LAD, SVG-Ramus, SVG-distal RCA Polyp [...] Resolved Date Atherosclerotic Heart Diseas e Of [place] Coronary Artery With Other Forms Of Angina Pectoris 05/29/2020 11/30/2022 Overview: - coronary angiogram 05/29/2020 - 3 vessel CAD Encounters Date Type Department Care Team Description 02/05/2024 1:45 PM CDT Clinical Support Department of Physical Medicine and Rehabilitation in [place], [place] [address] [place] [address] Jeremy Woodard M.D. Gill, Stephanie N, P.T. Radiculopathy Cervical 01/31/2024 2:30 PM CDT Clinical Support Department of Physical Medicine and Rehabilitation in [place], [place] [address] [place] [address] Jeremy Woodard M.D. Gill, Stephanie N, P.T. Radiculopathy Cervical 01/24/2024 Clinical Communication Urgent Care, [facility], in [place], [place] [address] [place] [address] Meghan Rod APRN, C.N.P., M.S.N. Results 01/22/2024 2:45 PM CDT Office Visit Urgent Care, [facility], in [place], [place] [address] [place] [address] Meghan Rod APRN, C.N.P., M.S.N. Symptom Urinary (Primary Dx); Diarrhea; Nausea And Vomiting Discharge Disposition: Home or Self Care 01/04/2024 2:30 PM CDT Clinical Support Department of Physical Medicine and Rehabilitation in [place], [place] [address] [place] [address] eJremy Woodard M.D. Gill, Stephanie N P.T. Radiculopathy Cervical 12/28/2023 1:00 PM CDT Clinical Support Department of Physical Medicine and Rehabilitation in [place], [place] [address] [place] [address] Jeremy Woodard M.D. Gill, Stephanie N P.T. Radiculopathy Cervical 12/22/2023 11:00 AM CDT Clinical Support Department of Physical Medicine and Rehabilitation in [place], [place] [address] [place] [address] Jeremy Woodard M.D. Gill, Stephanie N P.T. Radiculopathy Cervical 12/15/2023 1:30 PM CDT Clinical Support Department of Physical Medicine and Rehabilitation in [place], [place] [address] [place] [address] Jeremy Woodard M.D. Gill, Stephanie N P.T. Radiculopathy Cervical 12/07/2023 1:00 PM CDT Clinical Support Department of Physical Medicine and Rehabilitation in [place], [place] [address] [place] [address] Jeremy Woodard M.D. Gill, Stephanie N P.T. Radiculopathy Cervical 12/01/2023 12:45 PM CDT Clinical Support Department of Physical Medicine and Rehabilitation in [place], [place] [address] [place] [address] Jeremy Woodard M.D. Gill, Stephanie N, P.TLana Radiculopathy Cervical 11/29/2023 1:00 PM CDT Clinical Support Department of Physical Medicine and Rehabilitation in [place], [place] [address] [place] [address] Jeremy Woodard M.D. Gill, Stephanie N, P.TLana Radiculopathy Cervical 11/22/2023 1:45 PM CDT Clinical Support Department of Physical Medicine and Rehabilitation in [place], [place] [address] [place] [address] Jeremy Woodard M.D. Gill, Stephanie N, P.TLana Radiculopathy Cervical 11/15/2023 1:45 PM CDT Clinical Support Department of Physical Medicine and Rehabilitation in [place], [place] [address] [place] [address] Jeremy Woodard M.D. Gill, Stephanie N P.TLana Radiculopathy Cervical 11/06/2023 1:45 PM APPAREL PATTERNMAKER Clinical Support Department of Physical Medicine and Rehabilitation in [place] [address] [place] [address] Jeremy Woodard M.D. Gill, Stephanie N P.TLana Radiculopathy Cervical from Last 3 Months Immunizations Name Administration Dates Next Due HZV [...] Department of Physical Medicine and Rehabilitation in [place], [place] [address] [place] [phone] Jeremy Woodard M.D. [address], [facility] [address] [place] [phone] Sobia Orellana, P.TLana [address] [place] [phone] Health Maintenance Due Date Last Done Comments Depression Monitoring (PHQ-9) 1945 Hepatitis C Screening 1945 Zoster Vaccines (2 of 3) 10/28/2013 09/02/2013 DTaP,Tdap,and Td Vaccines (3 - Td or Tdap) 11/08/2021 11/09/2011, 02/16/2005 COVID-19 Vaccine (3 - 2022-2 4 season) 2023 01/20/2022, 12/29/2021 Influenza Vaccine (#1) 2023 3, 06/27/2011, 06/27/2011, Additional history exists Fall Risk Screen (Annual) 09/04/2023 Creatinine Level (Kidney Fun ction Test) 10/31/2024 10/31/2023, 11/30/2022, 12/29/2021, Additional history exists Potassium Level 10/31/2024 10/31/2023, 11/03, 01/28/2022, Additional history exists Sodium Level 10/31/2024 10/31/2023, 11/03, 12/29/2021, Additional history exists Pneumococcal vaccine (65+ years) Completed 10/13/19 16, 11/09/2011 Mammogram Discontinued 04/22/2021, 01/02, 01/11/2010, Additional history exists Procedures Procedure Name Priority Date/Time Associated Diagnosis Comments HC URINALYSIS AUTO W MICRO STAT 01/22/2024 2:19 PM CDT URINALYSIS WITH MICROSCOPIC IF INDICATED, U STAT 01/22/2024 2:19 PM CDT Symptom Urinary BACTERIAL CULTURE, AEROBIC + SUSC, URINE STAT 01/22/2024 2:16 PM CDT Symptom Urinary BASIC METABOLIC PANEL, S/P Routine 10/31/2023 11:56 AM APPAREL PATTERNMAKER Presence Of Aortocoronary Bypass Graft BI BREAST [...] 8.0 01/22/2024 2:41 PM CDT NPRG Specific [place] 1.025 1.001 - 1.035 01/22/2024 2:41 PM CDT NPRG Urobilinogen 0.2 0.2 - 1.0 mg/dL 01/22/2024 2:41 PM CDT NPRG Urine (Urine, Midstream) 01/22/2024 2:19 PM CDT 01/22/2024 2:38 PM CDT Meghan Rod APRN, C.N.P., M.S.N. LAB U RINE ORDERABLES [facility] [address] [place] [address], [facility] NPRG [facility] [place] [address] * (ABNORMAL) Microscopic Manual (01/22/2024 2:19 PM [...] CDT 01/22/2024 2:38 PM CDT Janine Burgos APRNNAnnemarie, M.S.N. LAB U RINE ORDERABLES [facility] [address] [place] [address], [facility] NPRG [address] [address] * Bacterial Culture, Aerobic + Susceptibility, Urine (01/22/2024 2:16 PM CDT) Urine Culture No growth after 1 day of incubation. 01/23/2024 12:39 PM CDT [facility] Urine (Urine, Midstream) 01/22/2024 2:16 PM CDT 01/22/2024 4:32 PM CDT Comment:Specimen Source Site : Urine Janine Burgos APRNN.P., M.S.N. LAB M ICROBIOLOGY - GENERAL ORDERABLES Performing Organization Address City/[facility]/ZIP Co de Phone Number [facility] [address] [place] [address], [facility] MKTO [facility] in [place] [address] [place] [address] * (ABNORMAL) Basic Metabolic Panel (10/31/2023 11:56 AM APPAREL PATTERNMAKER) Potassium, P 3.6 3.6 - 5.2 mmol/L 10/31/2023 12:32 PM APPAREL PATTERNMAKER NPRG Sodium, P 144 135 - 145 mmol/L 10/31/2023 12:32 PM APPAREL PATTERNMAKER NPRG Chloride, P 103 98 - 107 mmol/L 10/31/2023 12:32 PM APPAREL PATTERNMAKER NPRG Bicarbonate, P 27 22 - 29 mmol/L 10/31/2023 12:32 PM APPAREL PATTERNMAKER NPRG Anion Gap, P 14 7 - 15 10/31/2023 12:32 PM APPAREL PATTERNMAKER NPRG BUN (Blood Urea Nitrogen), P 22(H) 6 - 21 mg/dL 10/31/2023 12:32 PM APPAREL PATTERNMAKER NPRG Creatinine 0.98 0.59 - 1.04 mg/dL 10/31/2023 12:32 PM APPAREL PATTERNMAKER NPRG Estimated GFR (eGFR) 59(L) >=60 mL/min/BSA 10/31/2023 12:32 PM APPAREL PATTERNMAKER NPRG Comment: Estimated GFR calculated using the 2020 CKD_EPI creatinine equation. Calcium, Total, P 10.1 8.8 - 10.2 mg/dL 10/31/2023 12:32 PM APPAREL PATTERNMAKER NPRG Glucose, P 96 70 - 140 mg/dL 10/31/2023 12:32 PM APPAREL PATTERNMAKER NPRG Blood (Blood, Venous) 10/31/2023 11:56 AM APPAREL PATTERNMAKER 10/31/2023 12:01 PM APPAREL PATTERNMAKER Otis Johnson M.D. 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 See document viewer. Care Teams Butt Sawyer Relationship Specialty Start Date End Date Elsewhere, Pcp PCP - General Family Medicine 07/14/20
--- OUTSIDE RECORDS SUMMARY | 2024-02-06 13:37 | XMS_ITS ---
Author Organization [facility] Address [address] [place] [address] Care Team Providers Care Press Operator Helper Name Role Phone Unavailable Unavailable Unavailable Surgery Details Not on file Complications Check Surgery Details section. Procedure Estimated Blood Loss Check Surgery Details section. Procedure Findings Check Surgery Details section. Procedure Specimens Taken Check Surgery Details section.
--- OUTSIDE RECORDS SUMMARY | 2024-02-06 13:38 | XMS_ITS | Encounter Summary ---
Author Organization [facility] Address [address] [place] [address] Care Team Providers Care Sales And Leasing Agent Name Role Phone Elsewhere, Pcp Primary Care Provider Unavailabl e Reason for Referral * Physical Therapy (Routine) - Authorized Specialty Diagnoses / Procedures Referred By Jodi fraser Referred To Contact Diagnoses Radiculopathy Cervical Procedures PT Ongoing treatment Jeremy Woodard M.D. [address] [place] [address] [facility] Referral ID Status Reason Start Date Expiration Date V isits Requested Visits Authorized [id number] Authorized 11/01/2023 10/31/2024 99 99 ET MASTER Reason for Visit * Physical Therapy (Routine) - Closed Specialty Diagnoses / Procedures Referred By Jodi fraser Referred To Contact Diagnoses Radiculopathy Cervical Procedures PT Evaluate and treat Jeremy Woodard M.D. [address] [place] [address] [facility] Referral ID Status Reason Start Date Expiration Date Visits Re quested Visits Authorized [id number] Closed 10/27/2023 10/26/2024 1 1 Encounter Details Date Type Department Care Team (Latest Contact Info) Description 11/01/2023 1:00 PM PUPPET MASTER Comprehensive Visit Department of Physical Medicine and Rehabilitation in [place], [place] [address] [place] [address] Jeremy Woodard M.D. [address], [facility] [address] [place] [address] Sobia Orellana P.T. [address] [place] [phone] Radiculopathy Cervical Social History Tobacco Use Types [...] on file documented as of this encounter Consult Notes * Sobia Orellana PClarisse. - 11/01/2023 1:00 PM CST Physical Therapy Outpatient Evaluation/Treatment By co-signing this note, the provider certifies the therapy being provided to this patient is reasonable and necessary for the diagnosis or treatment of this patient. Physician Signature: Date Print Name: SUBJECTIVE Patient's Name: Cherelle Hussein Referring Provider: Jeremy Woodard M.D. Visit Diagnosis: 1. Radiculopathy Cervical Reason for Referral: Neck Pain and Lack of Cervical Motion Payor: 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 Trace degenerative anterolisthesis of C4 on C5. Otherwise normal alignment. No fractures. 2. Normal cord signal. No intradural mass or lesion. 3. Marrow edema of the articular processes of the right C4-5 facet joint which may represent stressreaction or inflammation. 4. At C3-4, mild to moderate narrowing of the left neural foramina 5. At C4-5, mild narrowing of the spinal canal. Mild right and moderate left neural foraminal narrowing. 6. At C5-6, mild narrowing of spinal canal. Moderate narrowing of the bilateral neural foramina. Potential impingement of the C6 nerve roots. 7. At C6-7, mild narrowing of the spinal canal. Moderate bilateral neural foraminal narrowing. Patient presents to outpatient physical therapy for evaluation of symptoms including: Neck pain and decreased motion Overall patient reports status remains the same. History of Present Illness: Patient reports that proximally 4 months ago she began to have worsening of neck pain and difficulty mobilizing the neck and egzn-xe-[id number] motion. Patient also notes decreased ability to extend or flex her neck with intermittent referral pattern down into the left upper extremity. Patient has also had intermittent episodes of her right hand shaking when reaching to graban item. She is found headaches with driving activities. She states it is impacting her sleeping and inability to complete sleeping on bilateral side-lying due to referral pattern down into her upperextremity. Patient has had difficulty doing her own hair with hands behind her back. Patient rates pain at a 9/10 at onset of therapy session due to driving into the clinic. She utilizes tramadol and hydrocodone to assist with low back pain. Patient recently underwent a right lumbar ablation. She also utilizes a heating pad into her neck or back to assist with pain management. Previous Treatments: Massage Prior Function/Occupational Profile: Prior Mobility/Functional Transfers Level of Johnston: Independent Prior Function/Occupational Profile ADL Assistance: Independent IADL/Homemaking Assistance: Independent Driving: Independent Occupational Role: Retired Home Living Type of [facility]: [facility] Home Layout: One level Fall Risk (65 and older) Fall in the last 12 months: No Are you fearful of falling?: No OBJECTIVE REVIEW OF SYSTEMS Pt denies the following red flag symptoms: immunosuppresion, recent spine surgery, fever/chills, rash, history of spine infection, unexplained weight loss, cancer history, increased night pain, osteoporosis (fracture risk), trauma, systemic steroids (fracture risk), foot drop, incapacitating pain. PHYSICAL EXAM Pain: Pain Assessment Pain Assessment: 0-10 Numeric Pain Intensity Scale Pain Score: 9 Pain Location: Head Vital Signs Outcome Measures: Patient presents with TO functional status score of 38 (MCII: and MDC: ) indicating general function at stage . The risk adjusted functional status score is 52. Patient is predicted to have 18 points of functional status change in 12 visits over 50 days based on normative data. Observation/Inspection: Patient is seated in chair comfortably minimal cervical movement conversation Palpation: Hypertonicity into upper trapezius, sternocleidomastoid muscles, cervical paraspinals. Range of Motion: ROM - Upper Extremity Screen: Addressed, no concerns noted Left Right Shoulder Flexion 0-170 AROM: 110?? AROM: 115?? Shoulder Abduction 0-140 AROM: 65?? AROM: 90?? Shoulder Internal Rotation 0-70 AROM: T10?? AROM: T12?? Shoulder External Rotation 0-90 AROM: C6?? AROM: T1?? Cervical ROM: Right Left Rotation 15?? 5?? Side bending 5?? 5?? Flexion 35?? Extension 10?? Strength: Strength - Upper Extremity Screen: Addressed, no concerns noted Neuro Screen/Motor Control: Sensation intact to light touch bilateral upper extremities Joint Mobility: Decreased mobility of entire cervical spine with lateral glides Attendance policy was discussed with patient. Patient verbalized and agrees to no show policy expectations including discharge from therapy if attendance expectations are not met. TREATMENT Treatment today consisted of: Manual Therapy: In supine, myofascial/mobilization to bilateral upper trapezius, levator scapula, supraspinatus, sternocleidomastoid muscles, cervical paraspinals. Muscle energy technique to bilateral rotation C4 on C5. In sitting lateral glides of thoracic spine T5 through T12. Home Exercise Program/Education: Educated patient increased fluid intake following therapy session as well as use of heating pad to assist with post treatment soreness. Assessment Clinical Impression: Patient presents to physical therapy with signs and symptoms consistent with cervical radiculopathy. Impairments: Decreased active motion of cervical spine and shoulders in all planes, hypertonicity throughout the cervical spinal musculature Functional deficits: Difficulty with driving activities, sleep disturbances, overhead activities Patient able to increase cervical range of motion of rotation by end of session increasing by 10-15degrees bilaterally. Patient benefit from continued physical therapy services including manual therapy techniques of myofascial/mobilization into the cervical spinal musculature. Therapeutic exercisewill be used as needed for stretching and stabilization activities. Rehab Potential: Patient has Good potential to achieve established physical therapy goals within the time frame outlined below, provided active participation in the physical therapy treatment plan and home program. Comorbid Conditions: Arthritis Clinical Presentation: Stable Examination elements: 1-2 Clinical Decision Making: Low complexity clinical decision making Functional Goals and Timeframes: PT Outpatient Goals PT Goal #1: Patient to decreased pain levels with driving to 10/14 with a [address] PT Goal [...] activities PT Goal #4 Date: 12/13/23 Plan Patient was educated regarding evaluative findings, diagnosis, prognosis, potential risks and benefits of rehabilitation interventions. A collaborative effort was used to establish goals and plan of care. The patient was informed of the right to make decisions regarding care, including refusal of examination or treatment or selection of services from another provider if desired. The treatment plan may be progressed or modified based upon the patient's response to treatment. Physical Therapy Attestation Statement: Patient agrees with the plan of care and goals. Treatment Plan: Plan: Plan of care initiated Start of Plan of Care: 11/01/2023 PT Next Certification Date: 01/10/24 Number of Visits:10 visits PT Duration: 90 days PT Frequency: PT Frequency: 2 times per week Treatment interventions may include: Treatment/Interventions: Therapeutic exercise, Therapeutic functional activity, Neuromuscular re-education, Manual therapy Plan for next session: Reassess initiation of manual therapy techniques. Time Spent with Patient Evaluations PT Eval - Low Complexity: 20 min Therapeutic Interventions Manual Therapy (min): 25 min Time Tracking Total Timed Units (min): 25 min Total Treatment Time (min): 45 min ET MASTER documented in this encounter Plan of Treatment Upcoming Encounters Date Type Department Care Team (Late st Contact Info) Description 02/19/2024 1:45 PM CDT Clinical Support Department of Physical Medicine and Rehabilitation in [place], [place] [address] [place] [phone] Jeremy Woodard M.D. [address], [place] [address] [place] [phone] Sobia Orellana P.T. [address] [place] [phone] documented as of this encounter Visit Diagnoses Diagnosis Radiculopathy Cervical documented in this encounter Additional Health Concerns Assessment Noted Time PHQ-9 Depression Total Score: 1 11/24/19 21 3:00 PM CDT documented as of this encounter Care Teams Sales And Leasing Agent Relationship Specialty Start Date End Date Elsewhere, Pcp PCP - General Family Medicine 07/14/20 documented as of this encounter
--- OUTSIDE RECORDS SUMMARY | 2024-02-06 13:38 | XMS_ITS | Encounter Summary ---
Author Organization [facility] Address [address] [place] [address] Care Team Providers Care Brewer Helper Name Role Phone Elsewhere, Pcp Primary Care Provider Unavailabl e Reason for Visit * Physical Therapy (Routine) - Authorized Specialty Diagnoses / Procedures Referred By Jodi fraser Referred To Contact Diagnoses Radiculopathy Cervical Procedures PT Ongoing treatment Jeremy Woodard M.D. [address] [place] [address] [facility] Region Referral ID Status Reason Start Date Expiration Date V isits Requested Visits Authorized [id number] Authorized 11/01/2023 10/31/2024 99 99 Encounter Details Date Type Department Care Team (Latest Contact Info) Description 12/01/2023 12:45 PM CDT Clinical Support Department of Physical Medicine and Rehabilitation in [place], [place] [address] [place] [phone] Jeremy Woodard M.D. [address], [facility] [address] [place] [phone] Sobia Orellana P.T. [address] [place] [phone] Radiculopathy Cervical Social History Tobacco Use Types [...] this encounter Progress Notes * Sobia Orellana PClarisse. - 12/01/2023 12:45 PM CDT Physical Therapy Outpatient Treatment Note SUBJECTIVE Patient's Name: Cherelle Hussein Referring Provider: Jeremy Woodard M.D. Visit Diagnosis: 1. Radiculopathy Cervical Payor: [facility] / Plan: [facility] HMO / Product Type: HMO / PT Next Certification Date: 01/10/24 Psychiatric Visit Count: 6 Patient comments: Patient reports she finds less tension in bilateral shoulders when sitting her chair. She continues have improvement of cervical range of motion into flexion extension limited however with left rotation. OBJECTIVE Outcome Measures: Patient returns with FOTO [...] Treatment today consisted of: Manual Therapy: In bilateral side-lying, myofascial/mobilization completed into bilateral upper trapezius, levator scapula, supraspinatus, rhomboids major and minor, thoracic paraspinals. In supine, myofascial/mobilization into bilateral sternocleidomastoid muscles and cervical paraspinals. Manual traction X 4 minutes. In sitting muscle energy technique for bilateral ERS T3. Lateral glides left to right T5 through T12. Home Exercise Program/Education: Use of heating pad to assist with pain management Patient reports good HEP compliance. Assessment Clinical Impression: Continued hypertonicity into cervical and thoracic spinal musculature. Improvement of bilateral cervical rotation noted following seated muscle energy techniques and thoracic glides. Patient continues to make gains towards physical therapy goals. Functional Goals and Timeframes: PT Goal #1: [...] week Plan for next session: Will continue 2 times per week for an additional 1-2 weeks focusing on manual therapy techniques. Treatment/Interventions: Therapeutic exercise, Therapeutic functional activity, Neuromuscular [...] Department of Physical Medicine and Rehabilitation in [place], [place] [address] [place] [phone] Jeremy Woodard M.D. [address], [facility] [address] [place] [phone] Sobia Orellana PAriane [address] [place] [phone] documented as of this encounter Visit Diagnoses Diagnosis Radiculopathy Cervical documented in this encounter Additional Health Concerns Assessment Noted Time PHQ-9 Depression Total Score: 1 11/24/19 21 3:00 PM CDT documented as of this encounter Care Teams Brewer Helper Relationship Specialty Start Date End Date Elsewhere, Pcp PCP - General Family Medicine 07/14/20 documented as of this encounter
--- OUTSIDE RECORDS SUMMARY | 2024-02-06 13:38 | XMS_ITS | Encounter Summary ---
Author Organization [facility] Address [address] [place] [address] Care Team Providers Care Coil Wrapper Name Role Phone Elsewhere, Pcp Primary Care Provider Unavailabl e Reason for Visit * Physical Therapy (Routine) - Authorized Specialty Diagnoses / Procedures Referred By Jodi fraser Referred To Contact Diagnoses Radiculopathy Cervical Procedures PT Ongoing treatment Jeremy Woodard M.D. [address] [place] [address] [facility] Region Referral ID Status Reason Start Date Expiration Date V isits Requested Visits Authorized [id number] Authorized 11/01/2023 10/31/2024 99 99 Encounter Details Date Type Department Care Team (Latest Contact Info) Description 12/22/2023 11:00 AM CDT Clinical Support Department of Physical Medicine and Rehabilitation in [place], [place] [address] [place] [phone] Jeremy Woodard M.D. [address], [facility] [address] [place] [phone] Sobia Orellana P.T. [address] [place] [phone] Radiculopathy Cervical Social History Tobacco Use Types [...] Progress Notes * Sobia Orellana P.T. - 12/22/2023 11:00 AM CDT Physical Therapy Outpatient Treatment Note SUBJECTIVE Patient's Name: Cherelle Hussein Referring Provider: Jeremy Woodard M.D. Visit Diagnosis: 1. Radiculopathy Cervical Payor: [facility] / Plan: [facility] HMO / Product Type: HMO / PT Next Certification Date: 01/10/24 [facility] Visit Count: 9 Patient comments: Patient arrives with an order for additional therapy services to work on right hip trochanteric bursitis as well as continued 3-4 visits for the cervical spine. Patient underwent aninjection of her right earlier this week. She notes improvement of symptoms in that area. Patient with improvement of right rotation cervical range of motion however feels a pulling sensation into her right scapula musculature. OBJECTIVE Outcome Measures: Patient returns with FOTO [...] of: Manual Therapy: In left side-lying, myofascial/mobilization completed into right upper trapezius, levator scapula, supraspinatus, rhomboids major and minor, thoracic paraspinals. In supine, myofascial/mobilization into bilateral sternocleidomastoid muscles and cervical paraspinals. Manual traction X 4 minutes. Lateral glides left to right T5 through T12. Therapeutic exercise: Initiated right hip strengthening exercises of side-lying clamshell X 10 repetition, also initiated lumbar pelvic tilts X 10 reps. Home Exercise Program/Education: Use of heating pad to assist with pain management 12/22/2023: Clamshell, pelvic tilts Patient reports good HEP compliance. Assessment Clinical Impression: Patient with hypertonicity throughout the right scapular musculature however improvement following manual therapy techniques. Patient feels pulling into the right low back with clamshell exercises. Verbal cues to complete in a pain-free range of motion. Functional Goals and Timeframes: PT Goal #1: [...] Therapeutic Interventions Manual Therapy (min): 35 min Therapeutic Exercise (min): 5 min Time Tracking Total Timed Units (min): 40 min Total Treatment Time (min): 40 min documented in this encounter Plan of Treatment Upcoming Encounters Date Type Department Care Team (Late st Contact Info) Description 02/19/2024 1:45 PM CDT Clinical Support Department of Physical Medicine and Rehabilitation in [address] [phone] Jeremy Woodard M.D. [address], [facility] [address] [place] [phone] Sobia Orellana P.T. [address] [place] [phone] documented as of this encounter Visit Diagnoses Diagnosis Radiculopathy Cervical documented in this encounter Additional Health Concerns Assessment Noted Time PHQ-9 Depression Total Score: 1 11/24/19 21 3:00 PM CDT documented as of this encounter Care Teams Coil Wrapper Relationship Specialty Start Date End Date Elsewhere, Pcp PCP - General Family Medicine 07/14/20 documented as of this encounter
--- OUTSIDE RECORDS SUMMARY | 2024-02-06 13:38 | XMS_ITS | Encounter Summary ---
Author Organization [facility] Address [address] [place] [address] Care Team Providers Care Drywall Applicator Name Role Phone Elsewhere, Pcp Primary Care Provider Unavailabl e Reason for Visit * Physical Therapy (Routine) - Authorized Specialty Diagnoses / Procedures Referred By Jodi fraser Referred To Contact Diagnoses Radiculopathy Cervical Procedures PT Ongoing treatment Jeremy Woodard M.D. [address] [place] [address] [facility] Region Referral ID Status Reason Start Date Expiration Date V isits Requested Visits Authorized [id number] Authorized 11/01/2023 10/31/2024 99 99 Encounter Details Date Type Department Care Team (Latest Contact Info) Description 12/07/2023 1:00 PM CDT Clinical Support Department of Physical Medicine and Rehabilitation in [place], [place] [address] [place] [phone] Jeremy Woodard M.D. [address], [facility] [address] [place] [phone] Sobia Orellana P.T. [address] [place] [phone] Radiculopathy Cervical Social History Tobacco Use Types [...] Progress Notes * Sobia Orellana P.T. - 12/07/2023 1:00 PM CDT Physical Therapy Outpatient Treatment Note SUBJECTIVE Patient's Name: Cherelle Hussein Referring Provider: Jeremy Woodard M.D. Visit Diagnosis: 1. Radiculopathy Cervical Payor: [facility] / Plan: [facility] HMO / Product Type: HMO / PT Next Certification Date: 01/10/24 Epic Visit Count: 7 Patient comments: Patient noticing improvement such as improvement of her hand writing, improvementthe shaking and numbness in the right hand. She is also noted improvement general mobility and ability to transfer in and out of her car. OBJECTIVE Outcome Measures: Patient returns with FOTO [...] compliance. Assessment Clinical Impression: Continued hypertonicity into bilateral upper thoracic spine and lower cervicalspinal musculature. Patient with referral pattern both inferiorly and superiorly with manual therapy techniques. Patient continues to progress towards physical therapy goals. Functional Goals and [...] Department of Physical Medicine and Rehabilitation in [place], [place] [address] [place] [phone] Jeremy Woodard M.D. [address], [facility] [address] [place] [phone] Sobia Orellana P.T. [address] [place] [phone] documented as of this encounter Visit Diagnoses Diagnosis Radiculopathy Cervical documented in this encounter Additional Health Concerns Assessment Noted Time PHQ-9 Depression Total Score: 1 11/24/19 21 3:00 PM CDT documented as of this encounter Care Teams Drywall Applicator Relationship Specialty Start Date End Date Elsewhere, Pcp PCP - General Family Medicine 07/14/20 documented as of this encounter
--- OUTSIDE RECORDS SUMMARY | 2024-02-06 13:38 | XMS_ITS | Encounter Summary ---
Author Organization [facility] Address [address] [place] [address] Care Team Providers Care Interlocking Pavement Installer Name Role Phone Elsewhere, Pcp Primary Care Provider Unavailabl e Reason for Visit * Physical Therapy (Routine) - Authorized Specialty Diagnoses / Procedures Referred By Jodi fraser Referred To Contact Diagnoses Radiculopathy Cervical Procedures PT Ongoing treatment Jeremy Woodard M.D. [address] [place] [address] [facility] Region Referral ID Status Reason Start Date Expiration Date V isits Requested Visits Authorized [id number] Authorized 11/01/2023 10/31/2024 99 99 Encounter Details Date Type Department Care Team (Latest Contact Info) Description 12/28/2023 1:00 PM CDT Clinical Support Department of Physical Medicine and Rehabilitation in [place], [place] [address] [place] [phone] Jeremy Woodard M.D. [address], [facility] 150 [place] [phone] Sobia Orellana P.T. [address] [place] [phone] Radiculopathy Cervical Social History Tobacco Use Types [...] Progress Notes * Sobia Orellana P.T. - 12/28/2023 1:00 PM CDT Physical Therapy Outpatient Treatment Note SUBJECTIVE Patient's Name: Cherelle Hussein Referring Provider: Jeremy Woodard M.D. Visit Diagnosis: 1. Radiculopathy Cervical Payor: [facility] / Plan: [facility] HMO / Product Type: HMO / PT Next Certification Date: 01/10/24 [facility] Visit Count: 10 Patient comments: Patient reports difficulty transferring on and off the floor limiting her performance exercise program. Questioning if she can complete this exercises on her bed. She notes general improvement of neck and shoulder dysfunction as well as hip pain. She no longer has referral pain into bilateral upper extremities with driving, has noted improvement of handwriting as well. OBJECTIVE Outcome Measures: Patient returns with FOTO [...] supraspinatus, rhomboids major and minor, thoracic paraspinals. Manual traction X 4 minutes. Lateral glides left to right T5 through T12. Therapeutic exercise: educated patient performance home exercise program in her bed to avoid the difficulty transferring and off floor Home Exercise Program/Education: Use of heating pad to assist with pain management 12/22/2023: Clamshell, pelvic tilts Patient reports good HEP compliance. Assessment Clinical Impression: Continued hypertonicity however improvement compared to onset of therapy sessions into bilateral cervical and thoracic spinal musculature as well as into scapular musculature. Patient with improvement of cervical mobility. Functional Goals and Timeframes: PT Goal #1: [...] Department of Physical Medicine and Rehabilitation in [place], [place] [address] [place] [address] Jeremy Woodard M.D. [address], [facility] [address] [place] [phone] Sobia Orellana P.T. [address] [place] [phone] documented as of this encounter Visit Diagnoses Diagnosis Radiculopathy Cervical documented in this encounter Additional Health Concerns Assessment Noted Time PHQ-9 Depression Total Score: 1 11/24/19 21 3:00 PM CDT documented as of this encounter Care Teams Interlocking Pavement Installer Relationship Specialty Start Date End Date Elsewhere, Pcp PCP - General Family Medicine 07/14/20 documented as of this encounter
--- OUTSIDE RECORDS SUMMARY | 2024-02-06 13:38 | XMS_ITS | Encounter Summary ---
Author Organization [facility] Address [address] [place] [address] Care Team Providers Care Agency Service Coordinator Name Role Phone Elsewhere, Pcp Primary Care Provider Unavailabl e Reason for Visit * Physical Therapy (Routine) - Authorized Specialty Diagnoses / Procedures Referred By Jodi fraser Referred To Contact Diagnoses Radiculopathy Cervical Procedures PT Ongoing treatment Jeremy Woodard M.D. [address] [place] [address] [facility] Referral ID Status Reason Start Date Expiration Date V isits Requested Visits Authorized [id number] Authorized 11/01/2023 10/31/2024 99 99 Encounter Details Date Type Department Care Team (Latest Contact Info) Description 11/06/2023 1:45 PM RV SERVICE TECHNICIAN Clinical Support Department of Physical Medicine and Rehabilitation in [place], [place] [address] [place] [phone] Jeremy Woodard M.D. [address], [facility] [address] [place] [phone] Sobia Orellana P.T. [address] [place] [phone] Radiculopathy Cervical Social History Tobacco Use Types [...] Progress Notes * Sobia Orellana P.T. - 11/06/2023 1:45 PM CST Physical Therapy Outpatient Treatment Note SUBJECTIVE Patient's Name: Cherelle Hussein Referring Provider: Jeremy Woodard M.D. Visit Diagnosis: 1. Radiculopathy Cervical Payor: [facility] / Plan: [facility] HMO / Product Type: HMO / PT Next Certification Date: 01/10/24 Epic Visit Count: 2 Patient comments: Patient reports that she did notice improvement in her sinuses as well as her ability to bend and extend her neck following last therapy session. Continues have difficulty rotating [id number] however improved since onset of therapy. OBJECTIVE Outcome Measures: Patient presents with FOTO functional status score of 38 (MCII: and [...] consisted of: Manual Therapy: In supine, myofascial/mobilization into bilateral upper trapezius, levator scapula,supraspinatus, sternocleidomastoid muscles, cervical paraspinals. Muscle energy technique with resisted rotation C2 through C3. Manual traction into cervical spine X 4 minutes. In sitting, lateral glides bilaterally to T5 through T12. Home Exercise Program/Education: Use of heating pad to assist with pain management Patient reports good HEP compliance. Assessment Clinical Impression: Continued high levels of hypertonicity throughout the cervical spinal musculature. Continued difficulty with mobilizing cervical spine with muscle energy techniques. Improvement of cervical rotation range of motion bilaterally following manual therapy techniques. Functional Goals and Timeframes: PT Goal #1: [...] per week Plan for next session: Will trial mobilizing patient in side-lying position X session to focus intothoracic and scapular musculature. Treatment/Interventions: Therapeutic exercise, Therapeutic functional activity, Neuromuscular re-education, Manual therapy Time Spent with Patient Therapeutic Interventions Manual Therapy (min): 35 min Time Tracking Total Timed Units (min): 35 min Total Treatment Time (min): 35 min SERVICE TECHNICIAN documented in this encounter Plan of Treatment Upcoming Encounters Date Type Department Care Team (Late st Contact Info) Description 02/19/2024 1:45 PM CDT Clinical Support Department of Physical Medicine and Rehabilitation in [place], [place] [address] [place] [phone] Jeremy Woodard M.D. [address], [facility] [address] [place] [phone] Sobia Orellana PAriane [address] [place] [phone] documented as of this encounter Visit Diagnoses Diagnosis Radiculopathy Cervical documented in this encounter Additional Health Concerns Assessment Noted Time PHQ-9 Depression Total Score: 1 11/24/19 21 3:00 PM CDT documented as of this encounter Care Teams Agency Service Coordinator Relationship Specialty Start Date End Date Elsewhere, Pcp PCP - General Family Medicine 07/14/20 documented as of this encounter
--- OUTSIDE RECORDS SUMMARY | 2024-02-06 13:38 | XMS_ITS | Encounter Summary ---
Author Organization [facility] Address [address] [place] [address] Care Team Providers Care Photographs Curator Name Role Phone Elsewhere, Pcp Primary Care Provider Unavailabl e Reason for Visit * Physical Therapy (Routine) - Authorized Specialty Diagnoses / Procedures Referred By Jodi fraser Referred To Contact Diagnoses Radiculopathy Cervical Procedures PT Ongoing treatment Jeremy Woodard M.D. [address] [place] [address] [facility] Region Referral ID Status Reason Start Date Expiration Date V isits Requested Visits Authorized [id number] Authorized 11/01/2023 10/31/2024 99 99 Encounter Details Date Type Department Care Team (Latest Contact Info) Description 11/29/2023 1:00 PM CDT Clinical Support Department of Physical Medicine and Rehabilitation in [place], [place] [address] [place] [phone] Jeremy Woodard M.D. [address], [facility] [address] [place] [phone] Sobia Orellana P.T. [address] [place] [phone] Radiculopathy Cervical Social History Tobacco Use Types [...] Progress Notes * Sobia Orellana PClarisse. - 11/29/2023 1:00 PM CDT Physical Therapy Outpatient Treatment Note SUBJECTIVE Patient's Name: Cherelle Hussein Referring Provider: Jeremy Woodard M.D. Visit Diagnosis: 1. Radiculopathy Cervical Payor: [facility] / Plan: [facility] HMO / Product Type: HMO / PT Next Certification Date: 01/10/24 Epic Visit Count: 5 Patient comments: Patient reports continued improvement pain in her bilateral neck region. She finds improvement of ability to reach to her head for hair management. OBJECTIVE Outcome Measures: Patient presents with FOTO [...] and cervical paraspinals. Manual traction X 4 minutes Home Exercise Program/Education: Use of heating pad to assist with pain management Patient reports good HEP compliance. Assessment Clinical Impression: Hypertonicity left more than right into upper trapezius and rhomboid musculature as well as along the thoracic paraspinals with referral pattern into base of head. Patient has made gains with flexion and extension range of motion. Continues to be limited more with left rotationat end of session. Functional Goals and Timeframes: PT Goal #1: [...] times per week Plan for next session: Reassess manual therapy techniques in side-lying position X session to focusinto thoracic and scapular musculature. Treatment/Interventions: Therapeutic exercise, Therapeutic [...] Department of Physical Medicine and Rehabilitation in [place], [place] [address] [place] [phone] Jeremy Woodard M.D. [address], [facility] [address] [place] [phone] Sobia Orellana PAriane [address] [place] [phone] documented as of this encounter Visit Diagnoses Diagnosis Radiculopathy Cervical documented in this encounter Additional Health Concerns Assessment Noted Time PHQ-9 Depression Total Score: 1 11/24/19 21 3:00 PM CDT documented as of this encounter Care Teams Photographs Curator Relationship Specialty Start Date End Date Elsewhere, Pcp PCP - General Family Medicine 07/14/20 documented as of this encounter
--- OUTSIDE RECORDS SUMMARY | 2024-02-06 13:38 | XMS_ITS | Encounter Summary ---
Author Organization [facility] Address [address] [place] [address] Care Team Providers Care Chip Unloader Name Role Phone Elsewhere, Pcp Primary Care Provider Unavailabl e Encounter Details Date Type Department Care Team (Latest Contact Info) Description 10/31/2023 11:46 AM GALLEY WORKER - 10/31/2023 11:59 PM GALLEY WORKER Hospital Encounter Department of Laboratory Medicine in [place], [place] [address] [place] [address] Otis Johnson M.D. [address] [facility] [address] [place] [address] Presence Of Aortocoronary Bypass Graft Discharge Disposition: Home or Self Care Social [...] on file documented as of this encounter Medications at Time of Discharge Medication Sig Dispensed Refills Start Date End Date acetaminophen (TYLENOL) 500 mg capsule Take 500 mg by mouth every 6 (six) hours as needed for pain. aspirin 81 mg chewable tablet Chew 81 mg. 05/21/2020 calcium carb/vit D3/minerals (CALCIUM-VITAMIN D ORAL) Take by mouth daily. 01/05/2010 carvediloL (COREG) 3.125 mg tablet 10/07/2022 clopidogreL (PLAVIX) 75 mg tablet Take 75 mg by mouth. 06/28/2020 diazePAM (VALIUM) 5 mg tablet 09/26/2022 diclofenac sodium (VOLTAREN) 1 % gel Apply topically to affected area(s) 2 times daily. 06/03/2019 evolocumab (Repatha SureClick) 140 mg/mL pen injector injection Inject 140 mg under the skin every 14 (fourteen) days. famotidine (PEPCID) 20 mg tablet 10/07/2022 fluticasone propionate (ALLERGY RELIEF, FLUTICASONE, NASAL) Administer 2 sprays into each nostril daily. 01/05/2010 hydroCHLOROthiazide (HYDRODIURIL) 25 mg tablet 02/22/2021 lidocaine (XYLOCAINE) 5 % ointment Apply 1 application topically. 09/22/2021 loratadine (CLARITIN) 10 mg tablet Take 10 mg by mouth. 06/03/2019 losartan (COZAAR) 25 mg tablet Take 25 mg by mouth. 07/10/2020 nitroglycerin (NITROSTAT) 0.[address] 0.4 mg under the tongue. 06/27/2020 omeprazole (PriLOSEC) [address] capsule Take 1 capsule by mouth daily. 03/21/2011 PARoxetine (PAXIL) 30 mg tablet Take 30 mg by mouth. 09/23/2019 pitavastatin calcium (LIVALO) 2 mg tablet Take 2 mg by mouth. 07/07/2020 potassium chloride (KLORCON/K-TAB) 10 mEq ER tablet 10/10/2022 triamcinolone (KENALOG) 0.1 % cream 05/08/2020 trimethoprim (TRIMPEX) 100 mg tablet Take by mouth. walker misc Walker with front wheels for home use. 06/27/2020 documented as of this encounter Plan of Treatment Upcoming Encounters Date Type Department Care Team (Late st Contact Info) Description 02/19/2024 1:45 PM CDT Clinical Support Department of Physical Medicine and Rehabilitation in [place] [address] [place] [address] Jeremy Woodard M.D. [address], [facility] [address] [place] [phone] Sobia Orellana P.T. [address] [facility] [place] [phone] documented as of this encounter Procedures Procedure Name Priority Date/Time Associated Diagnosis Comments LIPID PANEL, S Routine 10/31/2023 11:56 AM GALLEY WORKER Presence Of Aortocoronary Bypass Graft BASIC METABOLIC PANEL, S/P Routine 10/31/2023 11:56 AM GALLEY WORKER Presence Of Aortocoronary Bypass Graft documented in this encounter Results * (ABNORMAL) Basic Metabolic Panel (10/31/2023 11:56 AM GALLEY WORKER) Potassium, P 3.6 3.6 - 5.2 mmol/L 10/31/2023 12:32 PM GALLEY WORKER [facility] Sodium, P 144 135 - 145 mmol/L 10/31/2023 12:32 PM GALLEY WORKER [facility] Chloride, P 103 98 - 107 mmol/L 10/31/2023 12:32 PM GALLEY WORKER NPR[facility] Bicarbonate, P 27 22 - 29 mmol/L 10/31/2023 12:32 PM GALLEY WORKER [facility] Anion Gap, P 14 7 - 15 10/31/2023 12:32 PM GALLEY WORKER [facility] BUN (Blood Urea Nitrogen), P 22(H) 6 - 21 mg/dL 10/31/2023 12:32 PM GALLEY WORKER NPR[facility] Creatinine 0.98 0.59 - 1.04 mg/dL 10/31/2023 12:32 PM GALLEY WORKER [facility] Estimated GFR (eGFR) 59(L) >=60 mL/min/BSA 10/31/2023 12:32 PM GALLEY WORKER [facility] Comment: Estimated GFR calculated using the 2020 CKD_EPI creatinine equation. Calcium, Total, P 10.1 8.8 - 10.2 mg/dL 10/31/2023 12:32 PM GALLEY WORKER NPR[facility] Glucose, P 96 70 - 140 mg/dL 10/31/2023 12:32 PM GALLEY WORKER [facility] Blood (Blood, Venous) 10/31/2023 11:56 AM GALLEY WORKER 10/31/2023 12:01 PM GALLEY WORKER Otis Johnson M.D. LAB BLOOD [facility] [address] [place] [address], [facility] NPRG [facility] [facility] [address] [place] [address] * (ABNORMAL) Lipid Panel (10/31/2023 11:56 AM GALLEY WORKER) Triglycerides 164(H) mg/dL 10/31/2023 12:32 PM GALLEY WORKER NPR[facility] Comment: ----REFERENCE VALUE---- Normal: <150 mg/dL Borderline High: 150-199 mg/dL High: 200-499 mg/dL Very High: > or =500 mg/dL Cholesterol, Total 108 mg/dL 2023 12:32 PM GALLEY WORKER [facility] Comment: ----REFERENCE VALUE---- Desirable: < 200 mg/dL Borderline High: 200 - 239 mg/dL High: > or = 240 mg/dL Cholesterol, LDL, Calculated 25 mg/dL 10/31/2023 12:32 PM GALLEY WORKER [facility] Comment: ----REFERENCE VALUE---- Desirable: <100 mg/dL Above Desirable: 100-129 mg/dL Borderline High: 130-159 mg/dL High: 160-189 mg/dL Very High: >=190 mg/dL ----ADDITIONAL INFORMATION---- LDL cholesterol calculated using the Med[place]/NIH equation. Cholesterol, HDL 56 >=50 mg/dL 10/31/19 12:32 PM GALLEY WORKER NPR[facility] Cholesterol, Non-HDL, Calculated 52 mg/dL 10/31/2023 12:32 PM GALLEY WORKER [facility] Comment: ----REFERENCE VALUE---- Desirable: <130 mg/dL Above Desirable: 130-159 mg/dL Borderline High: 160-189 mg/dL High: 190-219 mg/dL Very High: > or =220 mg/dL Fasting (8 HR or more) No No 10/31/2023 12:01 PM GALLEY WORKER [facility] Blood (Blood, Venous) 10/31/2023 11:56 AM GALLEY WORKER 10/31/2023 12:01 PM GALLEY WORKER Otis Johnson M.D. LAB BLOOD [facility] [address] [place] [address], [facility] NPRG [facility] [address] [place] [address] documented in this encounter Visit Diagnoses Diagnosis Presence Of Aortocoronary Bypass Graft documented in this encounter Additional Health Concerns Assessment Noted Time PHQ-9 Depression Total Score: 1 11/24/19 21 3:00 PM CDT documented as of this encounter Care Teams Chip Unloader Relationship Specialty Start Date End Date Elsewhere, Pcp PCP - General Family Medicine 07/14/20 documented as of this encounter
--- OUTSIDE RECORDS SUMMARY | 2024-02-06 13:38 | XMS_ITS | Encounter Summary ---
Author Organization [facility] Address [address] [place] [address] Care Team Providers Care Assistant Project Manager Name Role Phone Elsewhere, Pcp Primary Care Provider Unavailabl e Reason for Visit * Physical Therapy (Routine) - Authorized Specialty Diagnoses / Procedures Referred By Jodi fraser Referred To Contact Diagnoses Radiculopathy Cervical Procedures PT Ongoing treatment Jeremy Woodard M.D. [address] [place] [address] [facility] Region Referral ID Status Reason Start Date Expiration Date V isits Requested Visits Authorized [id number] Authorized 11/01/2023 10/31/2024 99 99 Encounter Details Date Type Department Care Team (Latest Contact Info) Description 12/15/2023 1:30 PM CDT Clinical Support Department of Physical Medicine and Rehabilitation in [place], [place] [address] [place] [phone] Jeremy Woodard M.D. [address], [facility] [address] [place] [phone] Sobia Orellana P.T. [address] [place] [phone] Radiculopathy Cervical Social History Tobacco Use Types [...] Progress Notes * Sobia Orellana P.T. - 12/15/2023 1:30 PM CDT Physical Therapy Outpatient Treatment Note SUBJECTIVE Patient's Name: Cherelle Hussein Referring Provider: Jeremy Woodard M.D. Visit Diagnosis: 1. Radiculopathy Cervical Payor: [facility] / Plan: [facility] HMO / Product Type: HMO / PT Next Certification Date: 01/10/24 [facility] Visit Count: 8 Patient comments: Patient reports continued difficulty with rotating the neck. Continues have improvement of extension compared to initial evaluation however some regression over the past week. OBJECTIVE Outcome Measures: Patient returns with FOTO [...] reports good HEP compliance. Assessment Clinical Impression: Improvement hypertonicity into the thoracic paraspinals and medial scapular musculature however continues have high levels hypertonicity into the cervical spine. Following seatedlateral glides, patient with improvement of bilateral cervical rotation in LEs pulling noted into the neck and shoulders. Functional Goals and Timeframes: PT Goal #1: [...] Department of Physical Medicine and Rehabilitation in [place], [place] [address] [place] [phone] Jeremy Woodard M.D. [address], [facility] [address] [place] [phone] Sobia Orellana PAriane [address] [place] [phone] documented as of this encounter Visit Diagnoses Diagnosis Radiculopathy Cervical documented in this encounter Additional Health Concerns Assessment Noted Time PHQ-9 Depression Total Score: 1 11/24/19 21 3:00 PM CDT documented as of this encounter Care Teams Assistant Project Manager Relationship Specialty Start Date End Date Elsewhere, Pcp PCP - General Family Medicine 07/14/20 documented as of this encounter
--- OUTSIDE RECORDS SUMMARY | 2024-02-06 13:38 | XMS_ITS | Encounter Summary ---
Author Organization [facility] Address [address] [place] [address] Care Team Providers Care Battery Assembler Dry Cell Name Role Phone Elsewhere, Pcp Primary Care Provider Unavailabl e Reason for Visit * Physical Therapy (Routine) - Authorized Specialty Diagnoses / Procedures Referred By Jodi fraser Referred To Contact Diagnoses Radiculopathy Cervical Procedures PT Ongoing treatment Jeremy Woodard M.D. [address] [place] [address] [facility] Region Referral ID Status Reason Start Date Expiration Date V isits Requested Visits Authorized [id number] Authorized 11/01/2023 10/31/2024 99 99 Encounter Details Date Type Department Care Team (Latest Contact Info) Description 11/22/2023 1:45 PM CDT Clinical Support Department of Physical Medicine and Rehabilitation in [place], [place] [address] [place] [phone] Jeremy Woodard M.D. [address], [facility] [address] [place] [phone] Sobia Orellana P.T. [address] [place] [phone] Radiculopathy Cervical Social History Tobacco Use Types [...] Progress Notes * Sobia Orellana P.T. - 11/22/2023 1:45 PM CDT Physical Therapy Outpatient Treatment Note SUBJECTIVE Patient's Name: Cherelle Hussein Referring Provider: Jeremy Woodard M.D. Visit Diagnosis: 1. Radiculopathy Cervical Payor: [facility] / Plan: [facility] HMO / Product Type: HMO / PT Next Certification Date: 01/10/24 Epic Visit Count: 4 Patient comments: Patient reports continued difficulty with bilateral rotation range of motion however has noted improvement of cervical extension. Patient has been trying to avoid upper trapezius activation in sitting posture. OBJECTIVE Outcome Measures: Patient presents with FOTO [...] into bilateral sternocleidomastoid muscles and cervical paraspinals. Home Exercise Program/Education: Use of heating pad to assist with pain management Patient reports good HEP compliance. Assessment Clinical Impression: Continued high levels hypertonicity throughout the cervical and thoracic spinal musculature. Hypertonicity into sternocleidomastoid muscles and upper cervical paraspinals. With return to sitting, improvement of right rotation however continues have difficulty with left rotation. Functional Goals and Timeframes: PT Goal #1: [...] Department of Physical Medicine and Rehabilitation in [place], [place] [address] [place] [phone] Jeremy Woodard M.D. [address], [facility] [address] [place] [phone] Sobia Orellana PAriane [address] [place] [phone] documented as of this encounter Visit Diagnoses Diagnosis Radiculopathy Cervical documented in this encounter Additional Health Concerns Assessment Noted Time PHQ-9 Depression Total Score: 1 11/24/19 21 3:00 PM CDT documented as of this encounter Care Teams Battery Assembler Dry Cell Relationship Specialty Start Date End Date Elsewhere, Pcp PCP - General Family Medicine 07/14/20 documented as of this encounter
--- OUTSIDE RECORDS SUMMARY | 2024-02-06 13:38 | XMS_ITS | Encounter Summary ---
Author Organization [facility] Address [address] [place] [address] Care Team Providers Care Wax Cutter Name Role Phone Elsewhere, Pcp Primary Care Provider Unavailabl e Reason for Visit * Physical Therapy (Routine) - Authorized Specialty Diagnoses / Procedures Referred By Jodi fraser Referred To Contact Diagnoses Radiculopathy Cervical Procedures PT Ongoing treatment Jeremy Woodard M.D. [address] [place] [address] [facility] Region Referral ID Status Reason Start Date Expiration Date V isits Requested Visits Authorized [id number] Authorized 11/01/2023 10/31/2024 99 99 Encounter Details Date Type Department Care Team (Latest Contact Info) Description 11/15/2023 1:45 PM CDT Clinical Support Department of Physical Medicine and Rehabilitation in [place], [place] [address] [place] [phone] Jeremy Woodard M.D. [address], [facility] [address] [place] [phone] Sobia Orellana P.T. [address] [place] [phone] Radiculopathy Cervical Social History Tobacco Use Types [...] Progress Notes * Sobia Orellana P.T. - 11/15/2023 1:45 PM CDT Physical Therapy Outpatient Treatment Note SUBJECTIVE Patient's Name: Cherelle Hussein Referring Provider: Jeremy Woodard M.D. Visit Diagnosis: 1. Radiculopathy Cervical Payor: [facility] / Plan: [facility] HMO / Product Type: HMO / PT Next Certification Date: 01/10/24 Epic Visit Count: 3 Patient comments: Patient reports continued difficulty with rotation of neck and [id number] position. She has noted improvement flexion and extension however. OBJECTIVE Outcome Measures: Patient presents with FOTO [...] paraspinals. In supine, myofascial/mobilization into bilateral sternocleidomastoid muscles. Home Exercise Program/Education: Use of heating pad to assist with pain management Patient reports good HEP compliance. Assessment Clinical Impression: Patient with high levels hypertonicity throughout the thoracic musculature with referral pattern down into upper extremities. With return to sitting, patient with continued difficulty with cervical rotation range of motion however does note continued improvement of extension range of motion. Functional Goals and Timeframes: [...] Department of Physical Medicine and Rehabilitation in [place], [place] [address] [place] [address] Jeremy Woodard M.D. [address], [facility] [address] [place] [phone] Sobia Orellana P.T. [address] [place] [phone] documented as of this encounter Visit Diagnoses Diagnosis Radiculopathy Cervical documented in this encounter Additional Health Concerns Assessment Noted Time PHQ-9 Depression Total Score: 1 11/24/19 21 3:00 PM CDT documented as of this encounter Care Teams Wax Cutter Relationship Specialty Start Date End Date Elsewhere, Pcp PCP - General Family Medicine 07/14/20 documented as of this encounter
== END 2024-02-06 13:30 | disposition home or self-care (01) ==
LOC: INJ CL 13:32
PROVIDERS: PCP Physician Assistant Medical; Visit Provider Family Medicine
DX: M54.16 Radiculopathy, lumbar region (principal); M51.36 Other intervertebral disc degeneration, lumbar region
CPT/HCPCS: 62323; J0702; Q9966

== ENCOUNTER 2024-06-18 09:23 | Outpatient (CLI) | payer OTHER, SELFPAY ==
--- OUTSIDE RECORDS SUMMARY | 2024-06-18 09:27 | XMS_ITS | Encounter Summary ---
Author Organization [facility] Address [address] [place] [address] Care Team Providers Care Juvenile Probation Officer Name Role Phone Elsewhere, Pcp Primary Care Provider Unavailabl e Reason for Referral * Physical Therapy (Routine) - Authorized Specialty Diagnoses / Procedures Referred By Jodi fraser Referred To Contact Diagnoses Degeneration Disc Cervical Radiculopathy Cervical Stenosis Spinal Cervical Procedures PT Ongoing treatment Zain Mccall M.D. [address] [place] [address] Phone: tel: fax: [facility] Region Referral ID Status Reason Start Date Expiration Date V isits Requested Visits Authorized [id number] Authorized 05/22/2024 05/22/2025 99 99 Reason for Visit * Physical Therapy (Routine) - Closed Specialty Diagnoses / Procedures Referred By Jodi fraser Referred To Contact Diagnoses Degeneration Disc Cervical Radiculopathy Cervical Primary Osteoarthritis Cervical Spine Stenosis Spinal Cervical Trochanteric Bursitis Right Hip Radiculopathy Lumbar Spinal Stenosis Lumbar Region Without Neurogenic Claudication Procedures PT Evaluate and treat Zain Mccall M.D. [address] [place] [address] Phone: tel: fax: [facility] Region Referral ID Status Reason Start Date Expiration Date Visits Re quested Visits Authorized [id number] Closed 04/22/2024 04/22/2025 1 1 Encounter Details Date Type Department Care Team (Latest Contact Info) Description 05/22/2024 1:00 PM CDT Comprehensive Visit Department of Physical Medicine and Rehabilitation in [place], [place] [address] [place] [phone] Zain Mccall M.D. [address] [place] [phone] Sobia Orellana PClarisse. [address] [place] [phone] Degeneration Disc Cervical; Radiculopathy Cervical; Primary Osteoarthritis Cervical Spine; Stenosis Spinal Cervical; Trochanteric Bursitis Right Hip; Radiculopathy Lumbar; Spinal Stenosis Lumbar Region Without Neurogenic Claudication Social History Tobacco Use Types Packs/Day Years Used Date Smoking Tobacco: Never Smokeless Tobacco: Never PHQ-2 Answer Date Recorded PHQ-2 Score 0 11/23/2020 Depression Answer Date Recor ded PHQ-9 Total Score (max 27) 1 11/23 Nutrition Answer Date Recorded Nutrition: EVOO Fat Source 13 04/30 Nutrition: Servings of Fruits/Vegetables per Day Not on file 04/30/2020 Dental Answer Date Recorded Dental: Regular Dentist Unknown 10/23/19 21 Comments No Sex and Gender Information Value Date Recorded Sex Assigned at Not on file Legal 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 - 05/22/2024 1:00 PM CDT Physical Therapy Outpatient Evaluation/Treatment By co-signing this note, the provider certifies the therapy being provided to this patient is reasonable and necessary for the diagnosis or treatment of this patient. Physician Signature: Date Print Name: SUBJECTIVE Patient's Name: Cherelle Hussein Referring Provider: Zain Mccall M.D. Visit Diagnosis: 1. Degeneration Disc Cervical 2. Radiculopathy Cervical 3. Primary Osteoarthritis Cervical Spine 4. Stenosis Spinal Cervical 5. Trochanteric Bursitis Right Hip 6. Radiculopathy Lumbar 7. Spinal Stenosis Lumbar Region Without Neurogenic Claudication Reason for Referral: Neck Pain, Right SHoulder Pain, Low Back pain Onset Date: 04/21/24 Payor: [facility] / Plan: [facility] HMO / Product Type: HMO / Lumenz Visit Count: 1 [facility] / SURGICAL [...] 1983 Hysterectomy TONSILLECTOMY N/A Tonsillectomy Diagnostic Tests: Impression 1. Trace degenerative anterolisthesis of C4 on [...] therapy for evaluation of symptoms including: Neck and right shoulder pain Right-sided low back pain Overall patient reports status is worsening . History of Present Illness: Patient presents today's noting 1 month irritation of neck and right-sided shoulder symptoms. Patient had been receiving physical therapy services up until proximally with improvement of symptoms with neck mobility and pain. Patient states that following discharge from physical therapy she began to have return of symptoms into her neck and right-sided shoulder. She has noted return of hand tremors and more difficulty with handwriting since last therapy session. She notes difficulty with turning her head for traffic or difficulty with looking up. She has difficulty utilizing her right upper extremity to complete hair activities. She denies any difficulty w ith sleeping. Patient reports that she was diagnosed with right rotator cuff dysfunction and is unsure she will be undergoing an ultrasound guided injection into her cervical spine or her right shoulder. Patient also presents with complaints of right-sided hip and low back pain. She notes pain along the posterior hip traveling down into the lower extremities. 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 She has difficulty with cramping sensation especially with sleeping at night. Patient reports that her next back injection is July 03. Previous Treatments: Physical Therapy Prior Function/Occupational Profile: Prior Mobility/Functional Transfers Level of [place]: Independent Prior Function/Occupational Profile ADL Assistance: Independent IADL/Homemaking Assistance: Independent Driving: Independent Occupational Role: Retired Home Living Type of Home: [facility] Home Layout: One level Family/Caregiver Present: No Patient goals:Improve Pain in Shoulder, Neck and Low Back Fall Risk (65 and older) Fall in [...] Intensity Scale Pain Score: 9 Pain Location: Shoulder Pain Orientation: Right Vital Signs Outcome Measures: Patient presents with FOTO functional status score of 30 (MCII: and MDC: ) indicating general function at stage . The risk adjusted functional status score is 46. Patient is predicted to have 25 points of functional status change in 13 visits over 53 days based on normative data. Posture: Patient with limited cervical mobility during subjective examination. Bilateral shoulders elevated Ambulation/Balance: Patient ambulates without assist device with adequate gait speed and step through pattern Palpation: High levels hypertonicity into bilateral right more than left sternocleidomastoid muscles, cervical paraspinals, upper trapezius, levator scapula, rhomboids major and minor, right gluteus medius, piriformis, ITB band Range of Motion: ROM - Upper Extremity Screen: Impaired right & left Left Right Shoulder Flexion 0-170 AROM: 100?? AROM: 90?? Shoulder Abduction 0-140 AROM: 120?? AROM: 120?? Shoulder Internal Rotation 0-70 AROM: L1?? AROM: L1 with pain ?? Shoulder External Rotation 0-90 AROM: T1?? AROM: T1 with pain ?? Cervical ROM: Right Left Rotation Fourteen ?? 8?? Side bending ? Flexion 40?? Extension 20?? Strength: Strength - Upper Extremity Screen: Impaired right & left Strength - Upper Extremity Screen Comments: 4/5 for all upper extremity motions with pain with resisted right shoulder internal rotation Neuro Screen/Motor Control: Sensation intact to light touch bilateral upper and lower extremities Joint Mobility: Decreased mobility throughout the cervical spine especially C2 through C4 Attendance policy was discussed with patient. Patient verbalized and agrees to no show policy expectations including discharge from therapy if attendance expectations are not met. TREATMENT Treatment today consisted of: Manual Therapy: In left side-lying, myofascial/mobilization to right upper trapezius levator scapula, rhomboids major and minor, distal 1/2 ITB band, piriformis and gluteus medius. In supine, myofascial/mobilization to bilateral sternocleidomastoid muscles, cervical paraspinals. Manual traction completed X 4 minutes. Muscle energy technique with bilateral rotation C2 through C4. Home Exercise Program/Education: Patient continue use heating pad to assist with pain management. Educated patient to bring in her home traction unit to discuss ability to utilize at home Assessment Clinical Impression: Patient presents to physical therapy with signs and symptoms consistent with cervical arthritis, right-sided shoulder pain, right-sided low back pain. Impairments: Decreased shoulder range of motion, cervical range of motion, high levels hypertonicity into cervical spine and right-sided hip musculature Functional deficits: Difficulty with referral pattern into lower extremities of neuropathy, overhead activities, driving activities Following manual therapy techniques, patient with resolution of right-sided hip pain. Patient with improvement of right rotation however continues have pain and limited left cervical rotation. Patient benefit from continued physical therapy services including manual therapy techniques of myofascial/mobilization to assist with range of motion and pain levels. Therapeutic exercises for range of motion, stretching, development of home exercise program. Modalities used as needed to initiate a cervical traction home program for maintenance of patient's cervical arthritis. Rehab Potential: Patient has Good potential to achieve established physical therapy goals within the time frame outlined below, provided active participation in the physical therapy treatment plan and home program. Comorbid Conditions: Arthritis Clinical Presentation: Stable Examination elements: 1-2 Clinical Decision Making: Low complexity clinical decision making Functional Goals and Timeframes: PT Outpatient Goals PT Goal #1: Patient to increase bilateral cervical rotation to 30?? to assist with driving PT Goal #1 to be achieved by: 07/03/24 PT Goal #2: Patient to decrease resting pain levels to 0/10 PT Goal #2 to be achieved by: 07/03/24 PT Goal #3: Patient to increase bilateral shoulder range of motion to 120 without pain to complete hair activities PT Goal #3 to be achieved by: 07/03/24 PT Goal #4: Patient become independent home exercise program to maintain cervical mobility and lumbar mobility PT Goal #4 to be achieved by: 07/03/24 Plan Patient was educated regarding evaluative findings, [...] care initiated Start of Plan of Care: 05/22/2024 PT Next Certification Date: 07/31/24 Number of Visits:10 visits PT Duration: 90 days PT Frequency: PT Amount: 1 visit per day PT Frequency: 2 times per week Treatment interventions may include: Treatment/Interventions: Therapeutic exercise, Therapeutic functional activity, Neuromuscular re-education, Manual therapy Plan for next session: Reassess initiation manual therapy techniques. Review patient's home traction unit Time Spent with Patient Evaluations PT Eval - Low Complexity: 25 min Therapeutic Interventions Manual Therapy (min): 25 min Time Tracking Total Timed Units (min): 25 min Total Treatment Time (min): 50 min documented in this encounter Plan of Treatment Upcoming Encounters Date Type Department Care Team (Late st Contact Info) Description 06/20/2024 1:45 PM CDT Clinical Support Department of Physical Medicine and Rehabilitation in [place] [address] [place] [address] Zain Mccall M.D. [address] [place] [phone] Sobia Orellana, P.T. [address] [place] [phone] 06/24/2024 1:45 PM CDT Clinical Support Department of Physical Medicine and Rehabilitation in [place], [place] [address] [place] [address] Zain Mccall M.D. [address] [place] [address] Sobia Orellana P.T. [address] [place] [phone] 06/27/2024 1:45 PM CDT Clinical Support Department of Physical Medicine and Rehabilitation in [place], [place] [address] [place] [address] Zain Mccall M.D. [address] [place] [phone] Sobia Orellana P.T. [address] [place] [phone] documented as of this encounter Visit Diagnoses Diagnosis Degeneration Disc Cervical Radiculopathy Cervical Primary Osteoarthritis Cervical Spine Stenosis Spinal Cervical Trochanteric Bursitis Right Hip Radiculopathy Lumbar Spinal Stenosis Lumbar Region Without Neurogenic Claudication documented in this encounter Additional Health Concerns Assessment Noted Time PHQ-9 Depression Total Score: 1 11/24/19 21 3:00 PM CDT documented as of this encounter Care Teams Juvenile Probation Officer Relationship Specialty Start Date End Date Elsewhere, Pcp PCP - General Family Medicine 07/14/20 documented as of this encounter
--- OUTSIDE RECORDS SUMMARY | 2024-06-18 09:27 | XMS_ITS | Referral Summary ---
Author Organization [facility] Address [address] [place] [address] Care Team Providers Care Health And Fitness Professor Name Role Phone Elsewhere, Pcp Primary Care Provider Unavailabl e Source Comments Patient records contain information from all sites at [facility]. For routine questions regarding patient records, call [phone] during business hours, M-F 8:00 AM - 5:00 PM Central Time. Record requests for emergency care only can be directed to [phone] at any time.[facility] Encounters Date Type Department Care Team Description 06/12/2024 1:45 PM CDT Clinical Support Department of Physical Medicine and Rehabilitation in [place], [place] [address] [place] [address] Zain Mccall M.D. Gill, Stephanie N, P.T. Degeneration Disc Cervical; Radiculopathy Cervical; Stenosis Spinal Cervical 06/10/2024 1:45 PM CDT Clinical Support Department of Physical Medicine and Rehabilitation in [place], [place] [address] [place] [address] Zain Mccall M.D. Gill, Stephanie N, P.T. Degeneration Disc Cervical; Radiculopathy Cervical; Stenosis Spinal Cervical 06/06/2024 2:30 PM CDT Clinical Support Department of Physical Medicine and Rehabilitation in [place], [place] [address] [place] [address] Zain Mccall M.D. Gill, Stephanie N, P.T. Degeneration Disc Cervical; Radiculopathy Cervical; Stenosis Spinal Cervical 05/30/2024 10:15 AM CDT Clinical Support Department of Physical Medicine and Rehabilitation in [place], [place] [address] [place] [address] Zain Mccall M.D. Gill, Stephanie N P.T. Degeneration Disc Cervical; Radiculopathy Cervical; Stenosis Spinal Cervical 05/22/2024 1:00 PM CDT Comprehensive Visit Department of Physical Medicine and Rehabilitation in [place], [place] [address] [place] [address] Zain Mccall M.D. Gill, Stephanie N P.T. Degeneration Disc Cervical; Radiculopathy Cervical; Primary Osteoarthritis Cervical Spine; Stenosis Spinal Cervical; Trochanteric Bursitis Right Hip; Radiculopathy Lumbar; Spinal Stenosis Lumbar Region Without Neurogenic Claudication from Last 3 Months Allergies Active Allergy Reactions Criticality Noted Date Comments Amoxicillin Other (see comments) 08/24/2023 Ezetimibe Itching 11/02/2021 Atorvastatin Other (see comments) 07/10/2020 Muscle aches Penicillins Rash 07/10/2020 Medications calcium carb/vit D3/minerals (CALCIUM-VITAMIN D ORAL) Take by mouth daily. 01/06/20 10 Active fluticasone propionate (ALLERGY RELIEF, FLUTICASONE, NASAL) Administer 2 sprays into each nostril daily. 01/06/20 10 Active omeprazole (PriLOSEC) [address] capsule Take 1 capsule by mouth daily. 03/21/20 11 Active aspirin 81 mg chewable tablet Chew 81 mg. 05/21/20 20 Active clopidogreL (PLAVIX) 75 mg tablet Take 75 mg by mouth. 06/28/20 20 Active diclofenac sodium (VOLTAREN) 1 % gel Apply topically to affected area(s) 2 times daily. 06/03/20 19 Active loratadine (CLARITIN) 10 mg tablet Take 10 mg by mouth. 06/03/20 19 Active losartan (COZAAR) 25 mg tablet Take 25 mg by mouth. 07/10/20 20 Active nitroglycerin (NITROSTAT) 0.[address] 0.4 mg under the tongue. 06/27/20 20 Active PARoxetine (PAXIL) 30 mg tablet Take 30 mg by mouth. 09/23/19 20 Active pitavastatin calcium (LIVALO) 2 mg tablet Take 2 mg by mouth. 07/07/20 Active triamcinolone (KENALOG) 0.1 % cream 05/08/20 Active walker misc Walker with front wheels for home use. 06/27/20 20 Active hydroCHLOROthiazid e (HYDRODIURIL) 25 mg tablet 02/23/20 21 Active trimethoprim (TRIMPEX) 100 mg tablet Take by mouth. Activ e acetaminophen (TYLENOL) 500 mg capsule Take 500 mg by mouth every 6 (six) hours as needed for pain. Active evolocumab (Repatha SureClick) 140 mg/mL pen injector injection Inject 140 mg under the skin every 14 (fourteen) days. Active lidocaine (XYLOCAINE) 5 % ointment Apply 1 application topically. 09/22/19 22 Active diazePAM (VALIUM) 5 mg tablet 09/26/19 23 Active potassium chloride (KLORCON/K-TAB) 10 mEq ER tablet 10/10/19 23 Active famotidine (PEPCID) 20 mg tablet 10/07/19 23 Active carvediloL (COREG) 3.125 mg tablet 10/07/19 23 Active clobetasoL (TEMOVATE) 0.05 % ointment 01/10/20 24 Active esomeprazole (NexIUM) [address] capsule Take 1 capsule by mouth daily. 01/15/20 24 Active gabapentin (NEURONTIN) 300 mg capsule Take 1 capsule by mouth at bedtime. 12/22/19 24 Active HYDROcodone-acetam inophen (NORCO) 5-325 mg per tablet Take 1 tablet by mouth every 6 (six) hours as needed. 01/16/20 24 Active traMADoL (ULTRAM) 50 mg tablet Take 50 mg by mouth 4 (four) times a day as needed. 01/08/20 24 Active ondansetron ODT (ZOFRAN-ODT) 4 mg disintegrating tablet Dissolve 1 tablet (4 mg total) in the mouth every 8 (eight) hours as needed for nausea or vomiting. 15 tablet 01/22/20 24 Active Active Problems Problem Noted Date Diagnosed Date Presence Of Aortocoronary Bypass Graft 0 Overview (03/23/2021): JULIEN-LAD, SVG-Ramus, SVG-distal RCA Polyp Colon 12/09/2011 Overview (03/23/2021): Colonoscopy 12/2011 polyp, no follow up colonoscopy needed Deficiency Of Other Specified B Group Vitamins 0 11/15/2011 Deficiency Vitamin D 11/15/2011 Apnea Sleep Obstructive 01/06/2010 Hypothyroidism Subclinical 01/06/2010 Restless Leg Syndrome 01/06/2010 Temporomandibular Joint Disorder 01/06/2010 Insomnia 01/06/2010 Depressive Disorder 01/05/2010 Overview (01/24/2017): Depression* Bone Disorder 01/05/2010 Hyperlipidemia 01/05/2010 Reflux Esophageal 01/05/2010 Osteoarthritis 01/05/2010 Degeneration Disc Lumbosacral 10/29/2008 Resolved Problems Problem Noted Date Diagnosed Date Resolved Date Atherosclerotic Heart Diseas e Of [place] Coronary Artery With Other Forms Of Angina Pectoris 05/29/2020 11/30/2022 Overview (03/23/2021): - coronary angiogram 05/29/2020 - 3 vessel [...] on file Legal Sex Female 9:32 PM DISTILLING DEPARTMENT SUPERVISOR Gender Identity Not on file Sexual Orientation [...] Department of Physical Medicine and Rehabilitation in [place], [place] [address] [place] [address] Zain Mccall M.D. [address] [place] [address] Sobia Orellana P.T. [address] [place] [address] 06/24/2024 1:45 PM CDT Clinical Support Department of Physical Medicine and Rehabilitation in [place], [place] [address] [place] [address] Zain Mccall M.D. [address] [facility] [phone] Sobia Orellana P.TLana [address] [place] [address], [place] [phone] 06/27/2024 1:45 PM CDT Clinical Support Department of Physical Medicine and Rehabilitation in [place], [place] [address] [place] [phone] Zain Mccall M.D. [address] [facility] [phone] Sobia Orellana PAriane [address] [place] [address], [place] [phone] Procedures Procedure Name Priority Date/Time Associated Diagnosis Comments BASIC METABOLIC PANEL, S/P Routine 10/31/2023 11:56 AM DISTILLING DEPARTMENT SUPERVISOR Presence Of Aortocoronary Bypass Graft BI BREAST SCREENING BILATERAL Routine 01/17/2011 11:46 AM CDT from Last 3 Months or Most Recently Relevant to Health Maintenance Results * (ABNORMAL) Basic Metabolic Panel (10/31/2023 11:56 AM DISTILLING DEPARTMENT SUPERVISOR) Potassium, P 3.6 3.6 - 5.2 mmol/L 10/31/2023 12:32 PM DISTILLING DEPARTMENT SUPERVISOR NPRG Sodium, P 144 135 - 145 mmol/L 10/31/2023 12:32 PM DISTILLING DEPARTMENT SUPERVISOR NPRG Chloride, P 103 98 - 107 mmol/L 10/31/2023 12:32 PM DISTILLING DEPARTMENT SUPERVISOR NPRG Bicarbonate, P 27 22 - 29 mmol/L 10/31/2023 12:32 PM DISTILLING DEPARTMENT SUPERVISOR NPRG Anion Gap, P 14 7 - 15 10/31/2023 12:32 PM DISTILLING DEPARTMENT SUPERVISOR NPRG BUN (Blood Urea Nitrogen), P 22(H) 6 - 21 mg/dL 10/31/2023 12:32 PM DISTILLING DEPARTMENT SUPERVISOR NPRG Creatinine 0.98 0.59 - 1.04 mg/dL 10/31/2023 12:32 PM DISTILLING DEPARTMENT SUPERVISOR NPRG Estimated GFR (eGFR) 59(L) >=60 mL/min/BSA 10/31/2023 12:32 PM DISTILLING DEPARTMENT SUPERVISOR NPRG Comment: Estimated GFR calculated using the 2020 CKD_EPI creatinine equation. Calcium, Total, P 10.1 8.8 - 10.2 mg/dL 10/31/2023 12:32 PM DISTILLING DEPARTMENT SUPERVISOR NPRG Glucose, P 96 70 - 140 mg/dL 10/31/2023 12:32 PM DISTILLING DEPARTMENT SUPERVISOR NPRG Blood (Blood, Venous) 10/31/2023 11:56 AM DISTILLING DEPARTMENT SUPERVISOR 10/31/2023 12:01 PM DISTILLING DEPARTMENT SUPERVISOR us Otis Johnson M.D. LAB BLOOD ADD-ON Final Result [facility] [address] [place] [address], [facility] NPRG [facility] [address] [place] [address] * BI Breast Screening Bilateral (01/17/2011 11:46 AM CDT) Anatomical Region Laterality Modality Breast Bilateral Mammography 01/17/2011 11:4 6 AM CDT Addenda Addendum by ProviderRobin M.D. on 01/17/2011 11:46 AM CDT RAD^^^OW MA Mammo Screening w ??CADD 01/17/2011 11:46:00 Addendum by Robin Casarez M.D. on 01/17/2011 11:33 AM CDT RAD^^^MA MA MAMMO SCREENING W CADD 01/17/2011 11:33:00 Impressions 01/17/2011 4:02 PM CDT Stable mammogram, no mammographic evidence of malignancy. ?? ACR CODE: 1, negative mammogram. Narrative 01/17/2011 4:02 PM CDT HISTORY: Routine screening ?? COMPARISON: 01/11/2010, 08/04/2008, and 10/04/2006. ?? FINDINGS: The breasts are of intermediate radiographic density in a stable pattern. No suspicious dominant mass or clustered microcalcifications suspicious for malignancy identified. There is no suspicious interval change compared with 01/11/2010. ?? CAD was utilized in the interpretation of this exam. ?? Procedure Note Mitch Mcgraw Jr., M.D. / ProviderRobin M.D. - 01/25/2017 HISTORY: Routine screening COMPARISON: 01/11/2010, 08/04/2008, and 10/04/2006. FINDINGS: The breasts are of intermediate radiographic density in a stable pattern. No suspicious dominant mass or clustered microcalcifications suspicious for malignancy identified. There is no suspicious interval change compared with 01/11/2010. CAD was utilized in the interpretation of this exam. IMPRESSION: Stable mammogram, no mammographic evidence of malignancy. ACR CODE: 1, negative mammogram. Lo Vargas R.TLana(R), R.TLana(R)(M) [facility] PROC EDURES Edited Result - Final from Last 3 Months or Most Recently Relevant to Health Maintenance Insurance [facility] Advance Directives For more information, please contact: [phone] Documents on File Type Date Recorded Patient Kitchen Bath Designer Expl anation Advance Directives 11/13/2006 12:00 AM Leg acy document. See document viewer. Care Teams Health And Fitness Professor Relationship Specialty Start Date End Date Elsewhere, Pcp PCP - General Family Medicine 07/14/20
--- OUTSIDE RECORDS SUMMARY | 2024-06-18 09:27 | XMS_ITS ---
Author Organization [facility] Address [address] [place] [address] Care Team Providers Care Boat Operator Name Role Phone Unavailable Unavailable Unavailable Surgery Details Not on file Complications Check Surgery Details section. Procedure Estimated Blood Loss Check Surgery Details section. Procedure Findings Check Surgery Details section. Procedure Specimens Taken Check Surgery Details section.
--- OUTSIDE RECORDS SUMMARY | 2024-06-18 09:27 | XMS_ITS | Encounter Summary ---
Author Organization [facility] Address [address] [place] [address] Care Team Providers Care Coupon Clerk Name Role Phone Elsewhere, Pcp Primary Care Provider Unavailabl e Reason for Visit * Physical Therapy (Routine) - Authorized Specialty Diagnoses / Procedures Referred By Jodi fraser Referred To Contact Diagnoses Degeneration Disc Cervical Radiculopathy Cervical Stenosis Spinal Cervical Procedures PT Ongoing treatment Zain Mccall M.D. [address] [place] [address] Phone: tel: fax: [facility] Region Referral ID Status Reason Start Date Expiration Date V isits Requested Visits Authorized [id number] Authorized 05/22/2024 05/22/[phone] Encounter Details Date Type Department Care Team (Latest Contact Info) Description 05/30/2024 10:15 AM CDT Clinical Support Department of Physical Medicine and Rehabilitation in [place], [place] [address] [place] [phone] Zain Mccall M.D. [address] [place] [address] Sobia Orellana P.T. [address] [place] [phone] Degeneration Disc Cervical; Radiculopathy Cervical; Stenosis Spinal Cervical Social History Tobacco Use Types Packs/Day [...] on file Legal Sex Female 9:32 PM FERRY HAND Gender Identity Not on file Sexual Orientation Not on file documented as of this encounter Progress Notes * Sobia Orellana, P.Carlos. - 05/30/2024 10:15 AM CDT Physical Therapy Outpatient Treatment Note SUBJECTIVE Patient's Name: Cherelle Hussein Referring Provider: Zain Mccall M.D. Visit Diagnosis: 1. Degeneration Disc Cervical 2. Radiculopathy Cervical 3. Stenosis Spinal Cervical Payor: [facility] / Plan: [employer] H[employer] / Product Type: HMO / PT Next Certification Date: 07/31/24 Epic Visit Count: 2 Diagnostic Tests: Impression 1. Trace degenerative anterolisthesis [...] canal. Moderate bilateral neural foraminal narrowing. Patient comments: Patient reports improvement of pain levels into the neck and hip region. She has noted more energy since last therapy session. She finds the right hip is now a more tolerable position however is tender to touch. OBJECTIVE Outcome Measures: Patient presents with FOTO functional status score of 30 (MCII: and MDC: ) indicating general function at stage . The risk adjusted functional status score is 46. Patient is predicted to have 25 points of functional status change in 13 visits over 53 days based on normative data. Range of Motion: ROM - Upper Extremity [...] Side bending ? Flexion 40?? Extension 20?? TREATMENT Treatment today consisted of: Manual Therapy: In left side-lying, myofascial/mobilization to right upper trapezius levator scapula, rhomboids major and minor, distal 1/2 ITB band, piriformis and gluteus medius. In supine, myofascial/mobilization to bilateral sternocleidomastoid muscles, cervical paraspinals. Manual traction completed X 4 minutes. Muscle energy technique with bilateral rotation C2 through C4. Therapeutic Exercise: Patient presents with a home massage unit requesting assistance for setup andappropriateness to use. Demonstrated patient by plugging unit into wall. Educated patient on adjusting from the neck function to the foot function. Recommend patient do not use on her neck at this time due to the amount of arthritic changes. Educated patient on ability to utilize on her feet for massage. Did issue patient pictorial handout of traction pillow as she verbalized interest at evaluation. Home Exercise Program/Education: Patient continue use heating pad to assist with pain management. Patient reports good HEP compliance. Assessment Clinical Impression: As noted above, educated patient to not use her home unit for cervical massage. Patient with continued hypertonicity into the right hip musculature as well as into the right scapular musculature and bilateral sternocleidomastoid muscles. Patient reports improvement of symptoms following manual therapy techniques. Patient responding well to therapy services. Functional Goals and Timeframes: PT Goal #1: Patient to increase bilateral cervical rotation to 30?? to assist with driving PT Goal #1 to be achieved by: 07/03/24 PT Goal #1 Status: Achieved PT Goal #2: Patient to decrease resting pain levels to 0/10 PT Goal #2 to be achieved by: 07/03/24 PT Goal #2 Status: Progressing PT Goal #3: Patient to increase bilateral shoulder range of motion to 120 without pain to complete hair activities PT Goal #3 to be achieved by: 07/03/24 PT Goal #3 Status: Achieved PT Goal #4: Patient become independent home exercise program to maintain cervical mobility and lumbar mobility PT Goal #4 to be achieved by: 07/03/24 PT Goal #4 Status: Achieved Plan Physical Therapy Attestation Statement: Patient agrees with the plan of care and goals. Plan: Continue with current plan Number of Outpatient PT Visits: 10 PT Outpatient Duration (days): 90 days PT Amount: 1 visit per day PT Frequency: 2 times per week Plan for next session: Continue manual therapy techniques into cervical and thoracic spine. Treatment/Interventions: Therapeutic exercise, Therapeutic functional activity, Neuromuscular re-education, Manual therapy Time Spent with Patient Therapeutic Interventions Manual Therapy (min): 35 min Therapeutic Exercise (min): 10 min Time Tracking Total Timed Units (min): 45 min Total Treatment Time (min): 45 min documented in this encounter Plan of Treatment Upcoming Encounters Date Type Department Care Team (Late st Contact Info) Description 06/20/2024 1:45 PM CDT Clinical Support Department of Physical Medicine and Rehabilitation in [place], [place] [address] [place] [address] Zain Mccall M.D. [address] [place] [address] Sobia Orellana PLanaTLana [address] [place] [phone] 06/24/2024 1:45 PM CDT Clinical Support Department of Physical Medicine and Rehabilitation in [place], [place] [address] [place] [address] Zain Mccall M.D. [address] [place] [phone] Sobia Orellana P.TLana [address] [place] [phone] 06/27/2024 1:45 PM CDT Clinical Support Department of Physical Medicine and Rehabilitation in [place], [place] [address] [place] [address] Zain Mccall M.D. [address] [place] [phone] Sobia Orellana P.T. [address] [place] [phone] documented as of this encounter Visit Diagnoses Diagnosis Degeneration Disc Cervical Radiculopathy Cervical Stenosis Spinal Cervical documented in this encounter Additional Health Concerns Assessment Noted Time PHQ-9 Depression Total Score: 1 11/24/19 21 3:00 PM CDT documented as of this encounter Care Teams Coupon Clerk Relationship Specialty Start Date End Date Elsewhere, Pcp PCP - General Family Medicine 07/14/20 documented as of this encounter
--- OUTSIDE RECORDS SUMMARY | 2024-06-18 09:27 | XMS_ITS | Encounter Summary ---
Author Organization [facility] Address [address] [place] [address] Care Team Providers Care Build Engineer Name Role Phone Elsewhere, Pcp Primary Care Provider Unavailabl e Reason for Visit * Physical Therapy (Routine) - Canceled Specialty Diagnoses / Procedures Referred By Jodi fraser Referred To Contact Diagnoses Radiculopathy Cervical Procedures PT Ongoing treatment Jeremy Woodard M.D. Phone: tel: fax: [facility] Referral ID Status Reason Start Date Expiration Date V isits Requested Visits Authorized [id number] Canceled 11/01/2023 10/31/2024 99 [phone] Encounter Details Date Type Department Care Team (Latest Contact Info) Description 02/05/2024 1:45 PM CDT Clinical Support Department of Physical Medicine and Rehabilitation in [place], [place] [address] [place] [phone] Jeremy Woodard M.D. [address], [facility] [place] [address] [place] [phone] Sobia Orellana P.T. 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 - 02/05/2024 1:45 PM CDT Patient is a 79 y.o. female referred to clinic for Problem List Items Addressed This Visit None Visit Diagnoses Radiculopathy Cervical . Patient has been seen in Physical Therapy from 11/01/2023 to 04/03/2024 for a total of 13 visits. On assessment, patient presented with neck pain. Patient has been compliant with home exercise program and at home recommendations. REASON FOR DISCHARGE: Current status unknown as pt has not been seen in physical therapy since their last visit Functional Goals and Timeframes: PT Outpatient Goals [...] Date: 03/18/24 PT Goal #4 Status: Achieved Patient has partially met her therapy goals. Pt was reminded she can call at any time with questions or concerns. Patient is in agreement with discharge at this time. Thank you for this referral. documented in this encounter Plan of Treatment Upcoming Encounters Date Type Department Care Team (Late st Contact Info) Description 06/20/2024 1:45 PM CDT Clinical Support Department of Physical Medicine and Rehabilitation in [address] [phone] Zain Mccall M.D. [address] [place] [phone] Sobia Orellana, P.T. [address] [place] [phone] 06/24/2024 1:45 PM CDT Clinical Support Department of Physical Medicine and Rehabilitation in [place], [place] [address] [place] [address] Zain Mccall M.D. [address] [place] [phone] Soiba Orellana P.TLana [address] [place] [phone] 06/27/2024 1:45 PM CDT Clinical Support Department of Physical Medicine and Rehabilitation in [place], [place] [address] [place] [phone] Zain Mccall M.D. [address] [place] [phone] Sobia Orellana, P.T. [address] [place] [phone] documented as of this encounter Visit Diagnoses Diagnosis Radiculopathy Cervical documented in this encounter Additional Health Concerns Assessment Noted Time PHQ-9 Depression Total Score: 1 11/24/19 21 3:00 PM CDT documented as of this encounter Care Teams Build Engineer Relationship Specialty Start Date End Date Elsewhere, Pcp PCP - General Family Medicine 07/14/20 documented as of this encounter
--- OUTSIDE RECORDS SUMMARY | 2024-06-18 09:27 | XMS_ITS | Clinical Summary ---
Author Organization [facility] Address [place], [place] [address] Care Team Providers Care Outside Installation Machinist Name Role Phone Zain Mccall MD Unavailable [phone] Yessi Acosta Primary Care Provider Paula Cheung RN Unavailable [phone] Meka Jacobo RN Unavailable [phone] Asya Mederos RN Unavailable Otis Johnson MD Unavailable [facility] Unavailable Helio Delgado MD Unavailable Isaac Guo MD Unavailable Jeremy Woodard MD Unavailable Allergies Active Allergy Reactions [...] after 2nd tablet call 911 5 tablet 0 Active azelastine 137 mcg/actuation (ASTELIN) nasal sprayIndications:D ysfunction of both eustachian tubes,Allergic rhinitis, unspecified seasonality, unspecified trigger Inhale 2 Sprays into affected nostril(s) 2 times daily. 30 mL 11 1 Active carvediloL (COREG) 3.125 mg tablet Take 1 Tablet (3.125 mg) by mouth once daily. 0 3 Active albuterol HFA (PRO-AIR; VENTOLIN; PROVENTIL) 90 mcg/actuation inhalerIndications :SOB (shortness of breath) INHALE 1-2 PUFFS BY MOUTH EVERY 4 HOURS IF NEEDED FOR SHORTNESS OF BREATH. 1 Each 3 Active clopidogreL (PLAVIX) 75 mg tabletIndications: S/P CABG x 3 TAKE 1 TABLET (75 MG) BY MOUTH ONCE DAILY. 90 Tablet 3 4 Active evolocumab (Repatha SureClick) 140 mg/mL subcutaneous pen injectorIndication s:Coronary artery disease, unspecified vessel or lesion type, unspecified whether angina present, unspecified whether jamul or transplanted heart Inject 1 mL (140 mg) subcutaneous every 2 weeks. Inject into abdomen, thigh, or upper arm; rotate injection sites. 6 mL 3 4 Active gabapentin (NEURONTIN) 300 mg capsuleIndications :Lumbar radicular pain TAKE 1 CAPSULE BY MOUTH AT BEDTIME. 30 Capsule 1 4 Active aspirin chewable 81 mg chewable tabletIndications: Abnormal cardiac CT angiography CHEW & SWALLOW 1 TABLET BY MOUTH ONCE DAILY WITH A MEAL. 90 Tablet 3 4 Active losartan (COZAAR) 25 mg tabletIndications: S/P CABG x 3 Take 1 Tablet (25 mg) by mouth once daily. 90 Tablet 3 4 Active Pitavastatin 2 mg tabIndications:Dys lipidemia,ASHD (arteriosclerotic heart disease) Take by mouth once daily. 90 Tablet 3 4 Active trimethoprim 100 mg tabletIndications: Recurrent UTI Take 1 Tablet (100 mg) by mouth once daily. For prevention of urinary tract infection. 90 Tablet 3 4 Active hydroCHLOROthiazid e 25 mg tabletIndications: S/P CABG (coronary artery bypass graft) Take 1 Tablet (25 mg) by mouth once daily. 90 Tablet 3 4 Active esomeprazole (NEXIUM) 40 mg capsuleIndications :Gastroesophageal reflux disease with esophagitis, unspecified whether hemorrhage Take 1 Capsule (40 mg) by mouth once daily before a meal. 90 Capsule 3 4 Active fluticasone (50 mcg per actuation) nasal solution (FLONASE)Indicatio ns:Non-seasonal allergic rhinitis due to pollen Inhale 2 Sprays into affected nostril(s) once daily if needed for Rhinitis. 11.1 mL 11 4 Active lidocaine 5 % oint topical ointmentIndication s:DDD (degenerative disc disease), lumbar,Osteoarthri tis of knee, unspecified laterality, unspecified osteoarthritis type,Peripheral polyneuropathy Apply topically to affected area(s) 3 times daily if needed (pain, burning). 60 g 5 4 Active loratadine (CLARITIN) 10 mg tabletIndications: Seasonal allergic rhinitis due to pollen Take 1 Tablet (10 mg) by mouth once daily. 90 Tablet 3 4 Active PARoxetine (PAXIL) 40 mg tabletIndications: Depression, major, single episode, moderate (HC) Take 1 Tablet (40 mg) by mouth every morning. 90 Tablet 3 4 Active diclofenac topical (VOLTAREN) 1 % gelIndications:Ost eoarthritis of knee, unspecified laterality, unspecified osteoarthritis type APPLY TOPICALLY TO AFFECTED AREA(S) 2 TIMES DAILY. 200 g 4 Active traMADoL (ULTRAM) 50 mg tabletIndications: Lumbar radicular pain TAKE 1 TABLET (50 MG) BY MOUTH 4 TIMES DAILY IF NEEDED FOR PAIN. 36 Tablet 4 Active HYDROcodone-acetam inophen (5-325 mg/tablet)Indicati ons:Spinal stenosis, lumbar region, without neurogenic claudication TAKE 1 TABLET BY MOUTH EVERY 6 HOURS IF NEEDED FOR PAIN. MAX ACETAMINOPHEN DOSE: 4000MG IN 24 HRS. 24 Tablet 4 Active HYDROcodone-acetam inophen (5-325 mg/tablet)Indicati ons:Spinal stenosis, lumbar region, without neurogenic claudication TAKE 1 TABLET BY MOUTH EVERY 6 HOURS IF NEEDED FOR PAIN. MAX ACETAMINOPHEN DOSE: 4000MG IN 24 HRS. 24 Tablet 4 024 Discontinued traMADoL (ULTRAM) 50 mg tabletIndications: Lumbar radicular pain TAKE 1 TABLET (50 MG) BY MOUTH 4 TIMES DAILY IF NEEDED FOR PAIN. 36 Tablet 4 024 Discontinued Active Problems Problem Noted Date Diagnosed Date Celiac artery stenosis 01/15/2024 Dyslipidemia 02/09/2023 GERD (gastroesophageal reflux disease) 3 Overview (02/17/2023): EGD 02/2022 esophagitis, gastritis, duodenitis, negative H. 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 Zain Mccall Ok to fill at same amount/dose/frequency in my absence. Controlled substance agreement: 05/25/15 with Yessi SABA CREDIT CONTROL ASSISTANT query on 08/17/17 was acceptable. Last UDS on 10/31/2016 was appropriate. Hyperplastic colon polyp 12/09/2011 Overview (12/09/2011): Colonoscopy 12/2011 polyp, no follow up colonoscopy [...] Encounters Date Type Department Care Team Description 06/05/2024 1:30 PM CDT Office Visit [address] [address] Simon Ramsey, AuD Hearing Problem 06/05/2024 Travel 06/04/2024 Refill [facility] [address] [place] [address] Zain Mccall MD Refill Request (Hydrocodone-acetami nophen) 05/31/[address] [address] Simon Ramsey, Charles Questions (Hearing Aid) 05/30/[address] [address] Zain Mccall MD Refill Request (Tramadol) 05/27/[address] [address] Yessi Acosta PA Referral (Audiological Evaluation) 05/20/[address] [address] Zain Mccall MD Appointment 05/13/[address] [address] Zain Mccall MD Refill Request (Tramadol) 05/10/[address] [address] Zain Mccall MD Refill Request (Hydrocodone-acetami nophen) 05/01/2024 1:40 PM CDT Office Visit [address] [address] Zain Mccall MD Follow Up (back, neck and shoulders) 05/01/2024 Travel 04/25/2024 1:30 PM CDT Office Visit [address] [address] Simon Ramsey, AuD Hearing Aid 04/25/2024 Travel 04/23/2024 Telephone [facility] [address] [place] [phone] Otis Johnson MD Medication Management 04/19/2024 Telephone [facility] [address] [place] [address] Zain Mccall MD Referral 04/17/2024 Refill [facility] [address] [place] [address] Zain Mccall MD Refill Request (Tramadol) 04/15/2024 Refill [facility] [address] [place] [address] Zain Mccall MD Refill Request (Hydrocodone-acetami nophen) 04/08/2024 Refill [facility] [address] [place] [address] Yessi Acosta PA Refill Request (Paroxetine) 03/22/2024 Refill [facility] [address] [place] [address] Zain Mccall MD Refill Request (Hydrocodone-acetami nophen, Tramadol) from Last 3 Months Immunizations Name Administration Dates Next Due COVID-19 vaccine ([employer] NTCorthera 30mcg/0.3mL) 12YO+ ANISH-SUCROSE MD ELENAV 01/20/2022,12/29/2021 Influenza Virus, Unspecified 06/27/2011, 06/15/2009,06/15/2009,2007,06/05/2007 Influenza, CCIIV3 (Age >=6 MO) 09/02/2013 Influenza, IIV3 (Age >=3 years) 06/27/20 11,06/15/2009,07/24/2008,2006 Pneumococcal Poly,23-Valent (Pneumovax) 11/09/2011 Pneumococcal conj 13-Valent [...] of Communication with Friends and Fami ly Not on file 03/22/2024 Financial Resource Strain Answer Date R ecorded [...] Sign Reading Time Taken Comments Blood Pressure 115/72 05/01/2024 1:34 PM CDT Pulse 83 05/01/2024 1:34 PM CDT Temperature 36.6 ??C (97.8 ??F) 12/20/2023 11:16 AM C DT Respiratory Rate 16 12/15/2022 11:12 AM CDT Oxygen Saturation 97% 05/01/2024 1:34 PM CDT Inhaled Oxygen Concentration - - Weight 59 kg (130 lb) 05/01/2024 1:34 PM CDT Height 157.5 cm (5' 2) 01/15/2024 1:15 PM CDT Body Mass Index 23.78 01/15/2024 1:15 PM CDT Plan of Treatment Upcoming Encounters Date Type Department Care Team (Late st Contact Info) Description 06/18/2024 10:40 AM CDT Office Visit [facility] [address] [place] [address] Zain Mccall MD [address] [place] [address] Arrived Health Maintenance Due Date Last Done Comments Zoster (shingles) series for age 50+ (2 of 3) 10/28/2013 09/02/2013 RSV vaccine for adults or (1 - 1-dose 75+ series) 01/30/2020 Tetanus booster 11/08/2021 11/09/2011, 02/16/2005 COVID-19 vaccine series ( season) 2024 01/20/2022, 12/29/2021 BMI (ht and wt on [...] Diagnosis Comments AMB EPIDURAL STEROID INJECTION Routine 06/18/2024 7:59 AM CDT Lumbar radicular pain Spinal stenosis, lumbar region, without neurogenic claudication DDD (degenerative disc disease), cervical ANTI HCV Add On 12/29/2021 11:11 AM CDT Need for hepatitis C screening test XR DXA BONE DENSITY 2 SITES AXIAL Routine 04/22/2021 2:00 PM CDT Osteopenia, unspecified location from Last 3 Months or Most Recently Relevant to Health Maintenance Results * ANTI HCV (12/29/2021 11:11 AM CDT) HEPATITIS C ANTIBODY Non-React endy Non-React endy 12/29/2021 5:57 PM CDT [facility] Comment:Antibodies to HCV no t detected; does not exclude the possibility of exposure to HCV. Blood BLOOD SPECIMEN / Unknown Venipuncture / Unknown 12/29/2021 11:11 AM CDT 12/29/2021 11:12 AM CDT Yessi MCKAY SEND OUTS [facility] [address] [place] [address], * (ABNORMAL) XR DXA BONE DENSITY 2 [...] to assess therapeutic efficacy. Yessi Acosta PA-C [facility] 04/27/2021 Narrative 04/27/2021 2:14 PM CDT For Patients: Results are automatically released to your [employer]see (Notizza) account once available, in compliance with federal regulations. This means that you may see your results before your provider has had a chance to review them. Please allow 2-3 business days for your provider to comment on the results. XR DXA Bone Mineral Density (BMD) EXAM LOCATION: [facility] [address] [facility] [address] PATIENT NAME: Cherelle Hussein DATE OF : [...] two scanners are made by the same trust administrative assistant. PROCEDURE: Dual-energy x-ray absorptiometry performed with routine [...] Comments Code Status Discussion: Discussed Care Teams Outside Installation Machinist Relationship Specialty Start Date End Date Yessi Acosta PA [address] [place] [address] PCP - General Family Practice 06/04/12 Zain Mccall MD [address] [place] [address] Sports Medicine 11/09/11 Paula Cheung RN [address] [address] [place] [facility] Registered Nurse 03/19/15 Meka Jacobo RN [address] [address] [place] [facility] Registered Nurse 07/05/16 Asya Mederos, RN 3433 [facility] [address] [place] [address] [place] [facility] Registered Nurse 06/25/21 Otis Johnson MD [address] [facility] [address] [place] [address] Cardiovascular Disease 12/29/21 [facility] [place] [address] [place] [address] 12/29/21 Helio Delgado MD [address] [place] [address] Surgery - Vascular 01/02/23 Isaac Guo MD [address] [place] [address] Neurology 01/02/23 [place] [address] [facility] [address] [place] [phone] Physical Medicine and Rehabilitation 01/15/24
--- OUTSIDE RECORDS SUMMARY | 2024-06-18 09:27 | XMS_ITS | Encounter Summary ---
Author Organization [facility] Address [address] [place] [address] Care Team Providers Care Ticket Worker Name Role Phone Elsewhere, Pcp Primary Care Provider Unavailabl e Reason for Visit * Physical Therapy (Routine) - Authorized Specialty Diagnoses / Procedures Referred By Jodi fraser Referred To Contact Diagnoses Degeneration Disc Cervical Radiculopathy Cervical Stenosis Spinal Cervical Procedures PT Ongoing treatment Zain Mccall M.D. [address] [place] [address] Phone: tel: fax: [facility] Region Referral ID Status Reason Start Date Expiration Date V isits Requested Visits Authorized [id number] Authorized 05/22/2024 05/22/[phone] Encounter Details Date Type Department Care Team (Latest Contact Info) Description 06/12/2024 1:45 PM CDT Clinical Support Department of Physical Medicine and Rehabilitation in [place], [place] [address] [place] [phone] Zain Mccall M.D. [address] [place] [address] Sobia Orellana P.T. 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 - 06/12/2024 1:45 PM CDT Physical Therapy Outpatient Treatment Note SUBJECTIVE Patient's Name: Cherelle Hussein Referring Provider: Zain Mccall M.D. Visit Diagnosis: 1. Degeneration Disc Cervical 2. Radiculopathy Cervical 3. Stenosis Spinal Cervical Payor: [facility] / Plan: [facility] HMO / Product Type: HMO / PT Next Certification Date: 07/31/24 Epic Visit Count: 5 Diagnostic Tests: Impression 1. Trace degenerative anterolisthesis [...] bilateral neural foraminal narrowing. Patient comments: Patient arrives 10 minutes late to treatment session. Patient notes increased soreness after last session however improvement of symptoms today. Patient notes resolution of the shooting pains down into the right axillary and upper arm. OBJECTIVE Outcome Measures: Patient presents with FOTO [...] of: Manual Therapy: In left side-lying, myofascial/mobilization into right upper trapezius, levator scapula, rhomboids major and minor, In supine, myofascial/mobilization to bilateral sternocleidomastoidmuscles, cervical paraspinals, upper trapezius, suboccipitals. Manual traction X 5 minutes. Home Exercise Program/Education: Patient continue use heating pad to assist with pain management. Patient reports good HEP compliance. Assessment Clinical Impression: Improvement of hypertonicity into the thoracic paraspinals and rhomboids majorand minor region today compared to previous sessions. Continues have hypertonicity right more than left into sternocleidomastoid muscles and cervical paraspinals. Functional Goals and Timeframes: PT Goal #1: [...] Department of Physical Medicine and Rehabilitation in [place], [place] [address] [place] [phone] Zain Mccall M.D. [address] [place] [address] Sobia Orellana P.T. [address] [place] [phone] 06/24/2024 1:45 PM CDT Clinical Support Department of Physical Medicine and Rehabilitation in [place], [place] [address] [place] [phone] Zain Mccall M.D. [address] [place] [phone] Sobia Orellana PLanaTLana [address] [place] [phone] 06/27/2024 1:45 PM CDT Clinical Support Department of Physical Medicine and Rehabilitation in [place], [place] [address] [place] [phone] Zain Mccall M.D. [address] [place] [phone] Sobia Orellana P.T. [address] [place] [phone] documented as of this encounter Visit Diagnoses Diagnosis Degeneration Disc Cervical Radiculopathy Cervical Stenosis Spinal Cervical documented in this encounter Additional Health Concerns Assessment Noted Time PHQ-9 Depression Total Score: 1 11/24/19 21 3:00 PM CDT documented as of this encounter Care Teams Ticket Worker Relationship Specialty Start Date End Date Elsewhere, Pcp PCP - General Family Medicine 07/14/20 documented as of this encounter
--- OUTSIDE RECORDS SUMMARY | 2024-06-18 09:27 | XMS_ITS | Encounter Summary ---
Author Organization [facility] Address [address] [place] [address] Care Team Providers Care Heating And Ventilation Engineer Name Role Phone Elsewhere, Pcp Primary Care Provider Unavailabl e Reason for Visit * Physical Therapy (Routine) - Authorized Specialty Diagnoses / Procedures Referred By Jodi fraser Referred To Contact Diagnoses Degeneration Disc Cervical Radiculopathy Cervical Stenosis Spinal Cervical Procedures PT Ongoing treatment Zain Mccall M.D. [address] [place] [address] Phone: tel: fax: [facility] Region Referral ID Status Reason Start Date Expiration Date V isits Requested Visits Authorized [id number] Authorized 05/22/2024 05/22/2025 99 [phone] Encounter Details Date Type Department Care Team (Latest Contact Info) Description 06/10/2024 1:45 PM CDT Clinical Support Department of Physical Medicine and Rehabilitation in [place], [place] [address] [place] [phone] Zain Mccall M.D. [address] [place] [address] Sobia Orellana P.T. 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 - 06/10/2024 1:45 PM CDT Physical Therapy Outpatient Treatment Note SUBJECTIVE Patient's Name: Cherelle Hussein Referring Provider: Zain Mccall M.D. Visit Diagnosis: 1. Degeneration Disc Cervical 2. Radiculopathy Cervical 3. Stenosis Spinal Cervical Payor: [facility] / Plan: [facility] HMO / Product Type: HMO / PT Next Certification Date: 07/31/24 Epic Visit Count: 4 Diagnostic Tests: Impression 1. Trace degenerative anterolisthesis [...] neural foraminal narrowing. Patient comments: Patient reports continued improvement of right-sided low back and hip pain. She is notice pain has isolated and from the cervical spine into the right-sided neck and upper extremitywrapping around into the axillary area OBJECTIVE Outcome Measures: Patient presents with FOTO [...] trapezius, levator scapula, rhomboids major and minor, laterally into subscapularis. In supine, myofascial/mobilization tobilateral sternocleidomastoid muscles, cervical paraspinals, upper trapezius, suboccipitals. Manualtraction X 5 minutes. Home Exercise Program/Education: Patient continue use heating pad to assist with pain management. Patient reports good HEP compliance. Assessment Clinical Impression: Hypertonicity throughout the right-sided shoulder musculature and into subscapularis region. Patient with positive therapy outcomes with regard to low back and hip pain. Isolation and centralization of symptoms into the right-sided shoulder and neck region. Improvement of cervical mobility since onset therapy sessions. Functional Goals and Timeframes: PT Goal #1: [...] Department of Physical Medicine and Rehabilitation in [place], [place] [address] [place] [phone] Zain Mccall M.D. [address] [place] [phone] Sobia Orellana P.T. [address] [place] [phone] 06/24/2024 1:45 PM CDT Clinical Support Department of Physical Medicine and Rehabilitation in [place], [place] [address] [place] [address] Zain Mccall M.D. [address] [place] [phone] Sobia Orellana PAriane [address] [place] [phone] 06/27/2024 1:45 PM CDT Clinical Support Department of Physical Medicine and Rehabilitation in [place], [place] [address] [place] [address] Zain Mccall M.D. [address] [place] [phone] Sobia Orellana P.T. [address] [place] [phone] documented as of this encounter Visit Diagnoses Diagnosis Degeneration Disc Cervical Radiculopathy Cervical Stenosis Spinal Cervical documented in this encounter Additional Health Concerns Assessment Noted Time PHQ-9 Depression Total Score: 1 11/24/19 21 3:00 PM CDT documented as of this encounter Care Teams Heating And Ventilation Engineer Relationship Specialty Start Date End Date Elsewhere, Pcp PCP - General Family Medicine 07/14/20 documented as of this encounter
--- OUTSIDE RECORDS SUMMARY | 2024-06-18 09:27 | XMS_ITS | Clinical Summary ---
Author Organization [facility] Address [address] [place] [id number] Care Team Providers Care Horticulture Instructor Name Role Phone Elsewhere, Pcp Primary Care Provider Unavailabl e Source Comments Patient records contain information from all sites at [facility]. For routine questions regarding patient records, call [phone] during business hours, M-F 8:00 AM - 5:00 PM Central Time. Record requests for emergency care only can be directed to [phone] at any time.[facility] Allergies Active Allergy Reactions Criticality Noted Date [...] Place 0.4 mg under the tongue. 06/27/20 Active PARoxetine (PAXIL) 30 mg tablet Take 30 mg by mouth. 09/23/19 Active pitavastatin calcium (LIVALO) 2 mg tablet Take 2 mg by mouth. 07/07/20 Active triamcinolone (KENALOG) 0.1 % cream 05/08/20 Active walker misc Walker with front wheels for home use. 06/27/20 Active hydroCHLOROthiazid e (HYDRODIURIL) 25 mg tablet [...] Resolved Date Atherosclerotic Heart Diseas e Of [place] Coronary Artery With Other Forms Of Angina Pectoris 05/29/2020 11/30/2022 Overview (03/23/2021): - coronary angiogram 05/29/2020 - 3 vessel CAD Encounters Date Type Department Care Team Description 06/12/2024 1:45 PM CDT Clinical Support Department of Physical Medicine and Rehabilitation in [place], [place] [address] [place] [address] Zain Mccall M.D. Gill, Stephanie N, P.T. Degeneration Disc Cervical; Radiculopathy Cervical; Stenosis Spinal Cervical 06/10/2024 1:45 PM CDT Clinical Support Department of Physical Medicine and Rehabilitation in [place], [place] [address] [place] [address] Zain Mccall M.D. Gill, Stephanie N, P.T. Degeneration Disc Cervical; Radiculopathy Cervical; Stenosis Spinal Cervical 06/06/2024 2:30 PM CDT Clinical Support Department of Physical Medicine and Rehabilitation in [place], [place] [address] [place] [address] Zain Mccall M.D. Gill, Stephanie N, P.T. Degeneration Disc Cervical; Radiculopathy Cervical; Stenosis Spinal Cervical 05/30/2024 10:15 AM CDT Clinical Support Department of Physical Medicine and Rehabilitation in [place], [place] [address] [place] [address] Zain Mccall M.D. Gill, Stephanie N, P.T. Degeneration Disc Cervical; Radiculopathy Cervical; Stenosis Spinal Cervical 05/22/2024 1:00 PM CDT Comprehensive Visit Department of Physical Medicine and Rehabilitation in [place], [place] [address] [place] [address] Zain Mccall M.D. Gill, Stephanie N, P.T. Degeneration Disc Cervical; Radiculopathy Cervical; Primary Osteoarthritis Cervical Spine; Stenosis Spinal Cervical; Trochanteric Bursitis Right Hip; Radiculopathy Lumbar; Spinal Stenosis Lumbar Region Without Neurogenic Claudication from Last 3 Months Immunizations Name Administration [...] on file Legal Sex Female 9:32 PM INK TECHNICIAN Gender Identity Not on file Sexual [...] Department of Physical Medicine and Rehabilitation in [place], [place] [address] [place] [address] Zain Mccall M.D. [address] [place] [address] Sobia Orellana P.T. [address] [place] [address] 06/24/2024 1:45 PM CDT Clinical Support Department of Physical Medicine and Rehabilitation in [place], [place] [address] [place] [address] Zain Mccall M.D. [address] [place] [phone] Sobia Orellana, P.TLana [address] [place] [address], [place] [phone] 06/27/2024 1:45 PM CDT Clinical Support Department of Physical Medicine and Rehabilitation in [place], [place] [address] [place] [phone] Zain Mccall M.D. [address] [place] [phone] Sobia Orellana P.TLana [address] [place] [address], [place] [phone] Health Maintenance Due Date Last Done Comments Depression Monitoring (PHQ-9) 1945 Hepatitis C Screening 1945 Zoster Vaccines (2 of 3) 10/28/2013 09/02/2013 RSV vaccine - (32-3 6 weeks) or 60+ years (1 - 1-dose 75+ series) 01/30/2020 DTaP,Tdap,and Td Vaccines (3 - Td or Tdap) 11/08/2021 11/09/2011, 02/16/2005 Fall Risk Screen (Annual) 09/04/2023 COVID-19 Vaccine (3 - 2023-2 5 season) 2024 01/20/2022, 12/29/2021 Influenza Vaccine (#1) 2024 3, 06/27/2011, 06/27/2011, Additional history exists Creatinine Level (Kidney Fun ction Test) 10/31/2024 10/31/2023, 11/30/2022, 12/29/2021, Additional history exists Potassium Level 10/31/2024 10/31/2023, 11/03, 01/28/2022, Additional history exists Sodium Level 10/31/2024 10/31/2023, 11/03, 12/29/2021, Additional history exists Pneumococcal vaccine (65+ years) Completed 10/13/19 16, 11/09/2011 Mammogram Discontinued 04/22/2021, 01/02, 01/11/2010, Additional history exists Procedures Procedure Name Priority Date/Time Associated Diagnosis Comments BASIC METABOLIC PANEL, S/P Routine 10/31/2023 11:56 AM INK TECHNICIAN Presence Of Aortocoronary Bypass Graft BI BREAST SCREENING BILATERAL Routine 01/17/2011 11:46 AM CDT from Last 3 Months or Most Recently Relevant to Health Maintenance Results * (ABNORMAL) Basic Metabolic Panel (10/31/2023 11:56 AM INK TECHNICIAN) Potassium, P 3.6 3.6 - 5.2 mmol/L 10/31/2023 12:32 PM INK TECHNICIAN NPRG Sodium, P 144 135 - 145 mmol/L 10/31/2023 12:32 PM INK TECHNICIAN NPRG Chloride, P 103 98 - 107 mmol/L 10/31/2023 12:32 PM INK TECHNICIAN NPRG Bicarbonate, P 27 22 - 29 mmol/L 10/31/2023 12:32 PM INK TECHNICIAN NPRG Anion Gap, P 14 7 - 15 10/31/2023 12:32 PM INK TECHNICIAN NPRG BUN (Blood Urea Nitrogen), P 22(H) 6 - 21 mg/dL 10/31/2023 12:32 PM INK TECHNICIAN NPRG Creatinine 0.98 0.59 - 1.04 mg/dL 10/31/2023 12:32 PM INK TECHNICIAN NPRG Estimated GFR (eGFR) 59(L) >=60 mL/min/BSA 10/31/2023 12:32 PM INK TECHNICIAN NPRG Comment: Estimated GFR calculated using the 2020 CKD_EPI creatinine equation. Calcium, Total, P 10.1 8.8 - 10.2 mg/dL 10/31/2023 12:32 PM INK TECHNICIAN NPRG Glucose, P 96 70 - 140 mg/dL 10/31/2023 12:32 PM INK TECHNICIAN NPRG Blood (Blood, Venous) 10/31/2023 11:56 AM INK TECHNICIAN 10/31/2023 12:01 PM INK TECHNICIAN us Otis Johnson M.D. LAB BLOOD ADD-ON Final Result [facility] [address] [place] [address], [place] NPRG [facility] [address] [place] [address] * BI Breast Screening Bilateral (01/17/2011 11:46 AM CDT) Anatomical Region Laterality Modality Breast Bilateral Mammography 01/17/2011 11:4 6 AM CDT Addenda Addendum by Robin Casarez M.D. on 01/17/2011 11:46 AM CDT RAD^^^OW [...] Procedure Note Mitch Mcgraw Jr., M.D. / Robin Casarez M.D. - 01/25/2017 HISTORY: Routine screening COMPARISON: [...] malignancy. ACR CODE: 1, negative mammogram. Lo Juarez(R), Larry(Christine)(M) [facility] PROC EDURES Edited Result - Final from Last 3 Months or Most Recently Relevant to Health Maintenance Insurance ARE Advance Directives For more information, please contact: [phone] Documents on File Type Date Recorded Patient Manager Systems Expl anation Advance Directives 11/13/2006 12:00 AM Leg acmarcin document. See document viewer. Care Teams Horticulture Instructor Relationship Specialty Start Date End Date Elsewhere, Pcp PCP - General Family Medicine 07/14/20
--- OUTSIDE RECORDS SUMMARY | 2024-06-18 09:27 | XMS_ITS | Encounter Summary ---
Author Organization [facility] Address [address] [place] [address] Care Team Providers Care Jewelry Model Maker Name Role Phone Elsewhere, Pcp Primary Care Provider Unavailabl e Reason for Visit * Physical Therapy (Routine) - Authorized Specialty Diagnoses / Procedures Referred By Jodi fraser Referred To Contact Diagnoses Degeneration Disc Cervical Radiculopathy Cervical Stenosis Spinal Cervical Procedures PT Ongoing treatment Zain Mccall M.D. [address] [place] [address] Phone: tel: fax: [facility] Region Referral ID Status Reason Start Date Expiration Date V isits Requested Visits Authorized [id number] Authorized 05/22/2024 05/22/2025 [id number] [phone] Encounter Details Date Type Department Care Team (Latest Contact Info) Description 06/06/2024 2:30 PM CDT Clinical Support Department of Physical Medicine and Rehabilitation in [place], [place] [address] [place] [phone] Zain Mccall M.D. [address] [place] [address] Sobia Orellana P.T. [address] [place] [phone] Degeneration Disc Cervical; Radiculopathy Cervical; Stenosis Spinal [...] on file Legal Sex Female 9:32 PM RN ON SITE Gender Identity Not on file Sexual Orientation Not on file documented as of this encounter Progress Notes * Sobia Orellana, PLanaT. - 06/06/2024 2:30 PM CDT Physical Therapy Outpatient Treatment Note SUBJECTIVE Patient's Name: Cherelle Hussein Referring Provider: Zain Mccall M.D. Visit Diagnosis: 1. Degeneration Disc Cervical 2. Radiculopathy Cervical 3. Stenosis Spinal Cervical Payor: [facility] / Plan: [facility] HMO / Product Type: HMO / PT Next Certification Date: 07/31/24 Epic Visit Count: 3 Diagnostic Tests: Impression 1. Trace degenerative anterolisthesis [...] neural foraminal narrowing. Patient comments: Patient reports in general the low back has improved with onset of therapy sessions. However substantial aggravation of symptoms into her cervical spine with referral pattern down into upper extremities. Patient finds difficulty with tremors of her hands. OBJECTIVE Outcome Measures: Patient presents with FOTO [...] Manual Therapy: In supine, myofascial/mobilization to bilateral sternocleidomastoid muscles, cervical paraspinals, upper trapezius, suboccipitals. Manual traction X 5 minutes. Muscle energy techniquewith bilateral rotation C2 through C4. In sitting lateral glides T5 through T12 bilaterally. Home Exercise Program/Education: Patient continue use heating pad to assist with pain management. Patient reports good HEP compliance. Assessment Clinical Impression: Patient with continued high levels hypertonicity into cervical spinal musculature. Improvement of cervical mobility with manual therapy techniques today. Functional Goals [...] Department of Physical Medicine and Rehabilitation in [place], [place] [address] [place] [phone] Zain Mccall M.D. [address] [place] [phone] Sobia Orellana PAriane [address] [place] [phone] 06/24/2024 1:45 PM CDT Clinical Support Department of Physical Medicine and Rehabilitation in [place], [place] [address] [place] [phone] Zain Mccall M.D. [address] [place] [phone] Sobia Orellana PAriane [address] [place] [phone] 06/27/2024 1:45 PM CDT Clinical Support Department of Physical Medicine and Rehabilitation in [place], [place] [address] [place] [address] Zain Mccall M.D. [address] [place] [phone] Sobia Orellana P.TLana [address] [place] [phone] documented as of this encounter Visit Diagnoses Diagnosis Degeneration Disc Cervical Radiculopathy Cervical Stenosis Spinal Cervical documented in this encounter Additional Health Concerns Assessment Noted Time PHQ-9 Depression Total Score: 1 11/24/19 21 3:00 PM CDT documented as of this encounter Care Teams Jewelry Model Maker Relationship Specialty Start Date End Date Elsewhere, Pcp PCP - General Family Medicine 07/14/20 documented as of this encounter
== END 2024-06-18 09:24 | disposition home or self-care (01) ==
LOC: INJ CL 09:24
PROVIDERS: PCP Physician Assistant Medical; Visit Provider Family Medicine
DX: M54.16 Radiculopathy, lumbar region (principal); M51.369 Other intervertebral disc degeneration, lumbar region without mention of lumbar back pain or lower extremity pain
CPT/HCPCS: 62323; J0702; Q9966

== ENCOUNTER 2024-09-17 09:37 | Outpatient (CLI) | payer OTHER, SELFPAY | END 2024-09-17 09:38 | disposition home or self-care (01) | LOC: INJ CL 09:38 | PROVIDERS: PCP Physician Assistant Medical; Visit Provider Family Medicine | DX: M48.062 Spinal stenosis, lumbar region with neurogenic claudication (principal); M51.369 Other intervertebral disc degeneration, lumbar region without mention of lumbar back pain or lower extremity pain | CPT/HCPCS: 62323; J0702; Q9966 ==

== ENCOUNTER 2024-12-10 09:48 | Outpatient (CLI) | payer OTHER, SELFPAY | END 2024-12-10 09:49 | disposition home or self-care (01) | LOC: INJ CL 09:48 | PROVIDERS: PCP Physician Assistant Medical; Visit Provider Family Medicine | DX: M54.16 Radiculopathy, lumbar region (principal); M48.061 Spinal stenosis, lumbar region without neurogenic claudication; M41.50 Other secondary scoliosis, site unspecified | CPT/HCPCS: 62323; J0702; Q9966 ==

== ENCOUNTER 2025-05-06 11:09 | Outpatient (CLI) | payer OTHER, SELFPAY | END 2025-05-06 11:10 | disposition home or self-care (01) | LOC: INJ CL 11:10 | PROVIDERS: PCP Physician Assistant Medical; Visit Provider Family Medicine | DX: M54.16 Radiculopathy, lumbar region (principal); M51.369 Other intervertebral disc degeneration, lumbar region without mention of lumbar back pain or lower extremity pain | CPT/HCPCS: 62323; J0702; Q9966 ==

== ENCOUNTER 2025-08-19 07:35 | Outpatient (CLI) | payer OTHER, SELFPAY | END 2025-08-19 07:36 | disposition home or self-care (01) | LOC: INJ CL 07:37 | PROVIDERS: PCP Physician Assistant Medical; Visit Provider Family Medicine | DX: M54.16 Radiculopathy, lumbar region (principal); M51.369 Other intervertebral disc degeneration, lumbar region without mention of lumbar back pain or lower extremity pain | CPT/HCPCS: 62323; Q9966 ==